=== PATIENT | male | born 1950 | race Caucasian/White ===

== ENCOUNTER 2018-09-03 11:42 | Inpatient (IN) | payer OTHER, MEDICARE ==
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
[2018-09-03] MEDS ORDERED: ceFAZolin 2 GM/DEXTROSE 100 ML IV ONE (13:12)
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
[2018-09-03] MEDS ORDERED: NS 1,000 ML IV ONE (13:15)
[2018-09-03] MEDS ORDERED: HYDROmorphONE/DILAUDID 1 MG/ML INJ IVP ONE (13:15)
[2018-09-03] MEDS ORDERED: ONDANSETRON 4 MG/2 ML VIAL IVP ONE (13:15)
[2018-09-03 13:27] LABS: PLATELET COUNT 268 10^3/uL (150-400)
[2018-09-03 13:50] LABS: INR 1.06 (0.83-1.16); PROTIME(PATIENT) 13.4 SEC (12.0-15.0)
[2018-09-03] MEDS ORDERED: HYDROmorphONE/DILAUDID 1 MG/ML INJ IVP PRN (14:29)
[2018-09-03] MEDS ORDERED: ONDANSETRON 4 MG/2 ML VIAL IVP PRN ×2 (14:29→17:41)
[2018-09-03] MEDS ORDERED: ONDANSETRON DISINTEGRATING 4 MG TAB PO PRN (14:29)
[2018-09-03] MEDS ORDERED: NS 1,000 ML IV SCH (14:30)
[2018-09-03] MEDS ORDERED: ALBUTEROL 60 PUFFS/8 GM MDI IH PRN (14:31)
[2018-09-03] MEDS ORDERED: D50W 25 GM/50 ML SYR IVP PRN (14:32)
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
--- NOTE | 2018-09-03 15:48 | PDANEPAE ---
ANE History of Present Illness 68 yo orif tibia ANE Past Medical History - Cardiovascular History Hx Hypertension: Yes Hx Arrhythmias: No Hx Chest Pain: No Hx Coronary Artery / Peripheral Vascular Disease: No Hx CHF / Valvular Disease: No Hx Palpitations: No - Pulmonary History Hx Asthma/Reactive Airway Disease: Yes Hx Oxygen in Use at Home: No Hx Sleep Apnea: Yes - Endocrine History Hx Diabetes: Yes ANE Review of Systems Review of Systems: - Exercise capacity METS (RN): 2 METS ANE Patient History - Allergies Allergies/Adverse Reactions: Iodine and Iodide Containing Produc Allergy (Verified 09/03/18 11:56) sulfite Allergy (Verified 09/03/18 11:56) - Home Medications Home Medications: Albuterol [Proventil Inhaler HFA (*)] 1 - 2 puffs IH Q4H PRN 09/03/18 [Last Taken Unknown] Aspirin [Aspirin 81mg (*)] 81 mg PO DAILY 09/03/18 [Last Taken 09/03/18] Cholecalciferol Vit D3 [Vitamin D3 (*)] 3,000 units PO DAILY 09/03/18 [Last Taken 09/03/18] Fluticasone Propionate [Flonase Allergy Relief] 2 sprays EACHNARE DAILY PRN 08/23 [Last Taken 09/03/18] Glimepiride 4 mg PO DAILY 09/03/18 [Last Taken 09/03/18] Lisinopril [Zestril 5 mg (*)] 5 mg PO DAILY 09/03/18 [Last Taken 09/03/18] Multivitamins [Multivitamin (*)] 1 each PO DAILY 09/03/18 [Last Taken 09/03/18] Omeprazole 20 mg PO DAILY 09/03/18 [Last Taken 09/03/18] Pioglitazone HCl 45 mg PO DAILY 09/03/18 [Last Taken 09/03/18] Simvastatin 60 mg PO HS 09/03/18 [Last Taken 09/02/18] metFORMIN HCL [Glucophage 1000 mg] 1,000 mg PO BIDMEAL 09/03/18 [Last Taken 08/23 09:00] - NPO status NPO Status: no food or drink >8 hours NPO Since - Liquids (Date): 09/03/18 NPO Since - Liquids (Time): 08:00 NPO Since - Solids (Date): 09/03/18 NPO Since - Solids (Time): 08:00 - Smoking Hx Smoking Status: Never smoked ANE Labs/Vital Signs - Labs Result Diagrams: 09/03/18 13:05 09/03/18 14:50 - Vital Signs Blood Pressure: 151/79 Heart Rate: 66 Respiratory Rate: 16 O2 Sat (%): 95 Height: 5 ft 9 in Weight: 113.398 kg ANE Physical Exam - Airway Mallampati Score: Class 2 Mouth exam: normal dental/mouth exam - Pulmonary Pulmonary: no respiratory distress - Cardiovascular Cardiovascular: regular rate and rhythym - ASA Status ASA Status: III ANE Anesthesia Plan Anesthesia Plan: general endotracheal anesthesia
[2018-09-03] MEDS ORDERED: ROPIVACAINE HCL 20 MG/10 ML INJ EP ONE (16:00)
[2018-09-03] MEDS ORDERED: fentaNYL 100 MCG/2 ML INJ ONE ×2 (16:05→17:55)
[2018-09-03] MEDS ORDERED: REMIFENTANIL HCL 1 MG VIAL ONE (16:05)
[2018-09-03] MEDS ORDERED: PROPOFOL/EMULSION 500 MG/50 ML BOTTLE IV ONE (16:05)
[2018-09-03] MEDS ORDERED: ROCURONIUM 50 MG/5 ML VIAL ONE (16:09)
[2018-09-03] MEDS ORDERED: HYDROGEN PEROXIDE 236 ML BOTTLE TP ONE (17:19)
[2018-09-03] MEDS ORDERED: D5W 1/2 NS W/ 20 KCl/L 1,000 ML IV SCH (17:30)
[2018-09-03] MEDS ORDERED: OXYCODONE/APAP 5/325 TAB PO PRN (17:30)
[2018-09-03] MEDS ORDERED: ALBUTEROL 3 ML DEYVIAL ONE (17:36)
[2018-09-03] MEDS ORDERED: NALOXONE HCL 0.4 MG/ML INJ IVP PRN (17:41)
[2018-09-03] MEDS ORDERED: ALBUTEROL 3 ML DEYVIAL IH PRN (17:41)
[2018-09-03] MEDS ORDERED: fentaNYL 100 MCG/2 ML INJ IVP PRN (17:41)
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
[2018-09-03] MEDS: INSULIN LISPRO 100 UNIT/ML SC SCH (18:46)
--- NOTE | 2018-09-03 18:52 | HOSPPROG ---
Hospitalist Progress Note Assessment/Plan: I was called to evaluate the patient in the post-operative setting by his anesthesiologist. Patient had undergone operative repair of closed right tib- fib fracture. He had episode of bradycardia down into the 30s after receiving anesthesia. Per the anesthesiologist, he was in a Wenkebach rhythm for a short time. He received a dose of atropine with appropriate increase in HR. He was extubated successfully. He continues to have a prolonged AR interval. Upon my evaluation, he is waking up from anesthesia. He denies chest pain. He reports having a "sinus arrythmia." Vitals reviewed. HR 75 and sinus on monitor with 1st degree AV block. BP 103/ 50. Reviewed ECG from earlier in day. Shows sinus rhythm with significant 1st degree AV block (AR interval 339ms) and RBBB. There is no prior for comparison. 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 #Bradycardia: This has resolved, HR now normal. Suspect due to medications and increased vagal tone. Avoid AV melissa blockers. #Conduction disturbances: ECG shows significant 1st degree AV block and RBBB. Will order echocardiogram to evaluate. No prior history of cardiac disease. Objective: Vital Signs Temp Pulse Resp BP Pulse Ox 36.6 C 75 12 103/50 L 92 09/03/18 18:31 09/03/18 18:31 09/03/18 18:31 09/03/18 18:31 09/03/18 18:31 Laboratory Results 09/03/18 13:05 09/03/18 14:50 09/02/18 09/03/18 09/04/18 05:59 05:59 05:59 Intake Total 2000 Output Total 450 Balance 1550 PT 13.4 SEC (12.0-15.0) 09/03/18 13:05 INR 1.06 (0.83-1.16) 09/03/18 13:05 ICD10 Worksheet Patient Problems: Problems Problem Status Onset Fracture of fifth metatarsal bone of left foot Acute Right fibular fracture Acute Right tibial fracture Acute
[2018-09-03] MEDS: ATORVASTATIN CALCIUM 20 MG TAB PO SCH (20:23)
[2018-09-03] MEDS: HYDROCODONE/APAP 5/325 TAB PO PRN (23:47)
[2018-09-04 04:43] LABS: PLATELET COUNT 220 10^3/uL (150-400)
--- NOTE | 2018-09-04 04:46 | GOP ---
[f rep st] OPERATIVE REPORT DATE OF OPERATION: 09/03/2018 SURGEON: Emi Kirk MD PREOPERATIVE DIAGNOSIS: Right distal tibia shaft fracture. POSTOPERATIVE DIAGNOSIS: Right distal tibia shaft fracture. PROCEDURE PERFORMED: IM nail, right tibia. FINDINGS: ESTIMATED BLOOD LOSS: Minimal. Total surgical time was 1 hour. INDICATIONS: A 68-year-old male, who was temporarily wheelchair mobility bound secondary to a nondisplaced calcaneus fracture he sustained a couple months ago. He lives at [facility]. 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 Yesterday, he struck his foot while in his wheelchair on the wall. He presents to the emergency room 24 hours delayed with a distal tibia fracture. He states that both feet ran into a wall. R ankle pain. L foot pain. Reports that both were acute. He also reports that R heel pain from 8 weeks ago. His brother Cruzito is cardiac surgeon and reports decreasing mobility over the past year and thus the reason for an electric wheelchair. Attributes to overall deconditioning, increased weight, old head injury. He was also complaining of pain on the left foot and showed a minimally displaced left base of 5th metatarsal fracture. The patient identified in the preoperative holding area. Consent, laterality, and preoperative antibiotics were confirmed delivered. All questions were answered. DESCRIPTION OF PROCEDURE: Patient brought into the operating room. General anesthesia on the [facility], transferred over to the Hilario table. All extremities well padded. A greater trochanter bump was used. No tourniquet was used. The right lower extremity was prepped and draped in usual sterile fashion. Surgical time-out was performed. We used a medium size triangle. Made a medial parapatellar approach. Guide pin over-drill. 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 We used a ball-tip guidewire and easily passed it across the fracture. It was really kind of a spiral oblique with a butterfly fragment. We successfully reamed from 8 mm end cutter to 11 with some chatter in the isthmus, and placed a 375 x 10 mm nail. We placed 1 distal interlock proximally and 2 distal interlocks distally. Confirmed on fluoroscopic views. The wounds were copiously washed out with 300 cc of warm normal saline. We used 30 cc of 0.2% ropivacaine around the incisions. For the patellar incision , we used 3-0 Vicryl for the capsule, 3-0 Vicryl for the paratenon, 3-0 Monocryl for the skin, and vlad throughout. A soft dressing was applied with Xeroform, 4x4s, ABD, Webril, and an Sahil. IMPLANTS: Synthes expert nail with very distal interlocking screws, 375 mm x 10 mm with 1 proximal interlocking and 2 distal interlocking. COMPLICATIONS: None. DISPOSITION: Extubated, awake to the PACU in stable condition. /[id number]/MODL MTDD
--- NOTE | 2018-09-04 08:36 | SOAPPROG ---
SOCYNTHIA Progress Note Assessment/Plan: Assessment: pod 2. stable Plan: 09/04/18 08:34 PT/OT Fracture walker for L foot metatarsal fx. Nonsurgical mgmt. 100% WB OK R tibial nail. 50% weightbearing to assist with transfers. He will likely need a 1-2 person assist. He will most likely be wheelchair bound and transfers until he gets his strength up. Subjective: POD 1. feeling well. no significant events overnoc. Objective: Vital Signs Temp Pulse Resp BP Pulse Ox 36.6 C 56 L 14 123/57 H 99 09/04/18 08:00 09/04/18 08:00 09/04/18 08:00 09/04/18 08:00 09/04/18 08:00 Laboratory Results 09/04/18 04:19 09/04/18 04:19 09/03/18 09/04/18 09/05/18 05:59 05:59 05:59 Intake Total 2940 Output Total 700 1150 Balance 2240 -1150 PT 13.4 SEC (12.0-15.0) 09/03/18 13:05 INR 1.06 (0.83-1.16) 09/03/18 13:05 swollen Left foot mobile toes dressings cdi ICD10 Worksheet Patient Problems: Problems Problem Status Onset Fracture of fifth metatarsal bone of left foot Acute Right fibular fracture Acute Right tibial fracture Acute
--- NOTE | 2018-09-04 08:42 | POSTANESTH ---
Post Anesthetic Evaluation Cardiovascular Status: Normal, Stable Respiratory Status: Normal, Stable Level of Consciousness/Mental Status: Can Participate in Eval Pain Control: Adequate, Prn Tx Ordered Nausea/Vomiting Control: Adequate, Prn Tx Ordered Complications Possibly Related to Anesthesia: None Noted
[2018-09-04] MEDS ORDERED: FLUTICASONE NASAL 120 SPRAYS/16 GM MDI EACHNARE PRN (09:00)
[2018-09-04] MEDS ORDERED: PERFLUTREN LIPID MICROSPHERES 1.1 MG/ML VIAL IV ONE (09:15)
[2018-09-04] MEDS: HYDROCODONE/APAP 5/325 TAB PO PRN ×3 (09:22→23:19)
[2018-09-04] MEDS: INSULIN LISPRO 100 UNIT/ML SC SCH ×3 (09:33→18:14)
[2018-09-04] MEDS: ENOXAPARIN 40 MG/0.4 ML SYR SC SCH (09:33)
[2018-09-04] MEDS: LISINOPRIL 5 MG TAB PO SCH (09:34)
[2018-09-04] MEDS: PANTOPRAZOLE SODIUM 40 MG TAB PO SCH (09:34)
[2018-09-04] MEDS: CHOLECALCIFEROL VIT D3 2,000 UNITS TAB/CAP PO SCH (09:34)
--- NOTE | 2018-09-04 11:57 | ECHO ---
[email or web address] [address] [address] Main: [phone] Fax: Transthoracic Echocardiogram Name: SHYAM SCHULTZ MR#: [id number] Study Date: 09/04/2018 Study Time: 08:30 AM Date of : 1950 Age: 68 year(s) Height: 175.3 cm (69 in.) Weight: 112.95 kg (249 lb.) BSA: 2.27 m2 Gender: Male Examination: Echo with Definity Indication: bradycardia Image Quality: Technically Difficult Contrast: 0.330 mg I.V. dose of Definity was administered to improve endocardial border definition. Requested by: Aime Alvarez BP: 123 mmHg/57 mmHg Heart Rate: Rhythm: Indication: bradycardia Procedure Staff Salesperson Jewelry: Karina No [facility] Reading Physician: Sharlene Gibbs MD Requesting Provider: Conclusions: Normal size left ventricle. Mild to moderate LVH. The septum is more hypertrophied than the posterior wall. Paradoxical septal motion consistent with conduction delay.. Moderately dilated right ventricle. Mildly reduced RV function. Trivial to mild tricuspid valve regurgitation. Pulmonary artery pressure is not obtained due to inadequate TR jet. No pericardial effusion. No prior echo Measurements: Chambers Valvular Assessment AV/MV Valvular Assessment TV/PV Normal Normal Normal Name Value Range Name Value Range Name Value Range Ao Polly (MM): 3.7 cm (2.2 cm-3.7 AV Vmax: 1.47 m/s (1 m/s-1.7 TR Vmax: 3.17 mm/s ( - ) cm) m/s) TR PGmax: 40 mmHg ( - ) IVSd (2D): 1.4 cm (0.6 cm-1.1 AV maxP mmHg ( - ) PV Vmax: 1.14 m/s (0.6 m/s-0.9 cm) LVOT Vmax: 0.68 m/s (0.7 m/s-1.1 m/s) LVDd (2D): 4.6 cm (4.2 cm-5.9 m/s) PV PGmax: 5 mmHg ( - ) cm) ABHIJIT (Vmax): 1.9 cm2 ( - ) LVDs (2D): 2.9 cm (2.1 cm-4 MV E Vmax: 0.58 m/s ( - ) cm) MV A Vmax: 0.39 m/s ( - ) LVPWd (2D): 1.1 cm (0.6 cm-1 MV E/A: 1.49 ( - ) cm) LVOTd 2.3 cm 2.3 cm mm LVEF (2D): 69 (>=54 %) RVDd(2D): 5.1 cm (1.9 cm-3.8 cmmm) Patient: SHYAM SCHULTZ Study Date: 09/04/2018 Page 1 of 2 08:30 AM Continued Measurements: Chambers Valvular Assessment AV/MV Name Value Name Value LADs: 4.1 cm MV DecTime: 215 m/s LADs Lon.5 cm LA Area: 28.1 cm2 Additional Vessels Name Value Ao Ascendin.3 cm Findings: Left Ventricle: Normal size left ventricle. Mild to moderate LVH. Normal global systolic LV function. EF is 69 %. Unable to assess diastolic dysfunction. The septum is more hypertrophied than the posterior wall. Paradoxical septal motion consistent with conduction delay.. Right Ventricle: Moderately dilated right ventricle. Reduced RV function. Mildly reduced RV function. Left Atrium: The left atrium is normal in size. Right Atrium: The right atrium is not well visualized. Mitral Valve: The mitral valve is normal in appearance. There is no significant mitral valve regurgitation. No mitral stenosis is present. Aortic Valve: The aortic valve is tri-leaflet. There is no aortic valve regurgitation. No aortic valve stenosis is present. Tricuspid Valve: Tricuspid valve not well visualized. Trivial to mild tricuspid valve regurgitation. Pulmonary artery pressure is not obtained due to inadequate TR jet. Pulmonic Valve: Pulmonary valve not well visualized. Mild to moderate pulmonic valve regurgitation. Aorta: Normal size aortic root measuring 3.7 cm. Normal size ascending aorta measuring 3.3 cm. IVC: The IVC is not well visualized. Pericardium: No pericardial effusion. (No Signature Object) Patient: SHYAM SCHULTZ Study Date: 09/04/2018 Page 2 of 2 08:30 AM [id number]
--- NOTE | 2018-09-04 12:20 | ASMTCMCOM ---
CM Note CM Note Notes: Patient admitted w tib-fib fracture. He is s/p R tibial nail. He lives at [facility]. His brother Cruzito has just increased his level of assistance to the max (he was not getting much before). [facility] (patient has used them in the past). Hopefully, he will return home soon. Current CM discharge plan: [facility] w [facility] home care Date Signed: 09/04/2018 12:19 PM Electronically Signed By:Wendy Reza RN
[2018-09-04] MEDS ORDERED: FUROSEMIDE 40 MG/4 ML VIAL IVP ONE (12:41)
--- NOTE | 2018-09-04 12:46 | HOSPPROG ---
Hospitalist Progress Note Assessment/Plan: #Fracture of fifth metatarsal bone of left foot (Acute) -none surgical management #Right tib/fibular fracture (Acute) -s/p surgical mgmt on 09/03 #Acute on chronic Bradycardia. Received Atropine in Surgery -etiology: acute on chronic possible exacerbated by Anesthesia -EKG reviewed, shows one dropped beat. -plan to monitor overnight as some improvement thus far. If persists, would consult Cardiology in a.m. to determine need for pacemaker #NIDDM #HTN #Pedal edema: Lasix #Hyperkalemia: Lasix #Currently wheel chair bound. Will likely remains wheel chair bound for the near future. Needs Rehab DVT proph: Lovenox Subjective: no cp or sob. no n/v. Bradycardia is present but improving. not symptomatic. pain is well controlled Objective: Vital Signs Temp Pulse Resp BP Pulse Ox 36.7 C 57 L 15 110/53 L 96 09/04/18 11:40 09/04/18 11:57 09/04/18 11:57 09/04/18 11:40 09/04/18 11:57 Laboratory Results 09/04/18 04:19 09/04/18 04:19 09/03/18 09/04/18 09/05/18 05:59 05:59 05:59 Intake Total 2940 Output Total 700 1150 Balance 2240 -1150 PT 13.4 SEC (12.0-15.0) 09/03/18 13:05 INR 1.06 (0.83-1.16) 09/03/18 13:05 - Physical Exam Constitutional: no apparent distress Eyes: PERRL, EOMI Ears, Nose, Mouth, Throat: moist mucous membranes, hearing normal Cardiovascular: regular rate and rhythym, edema Respiratory: no respiratory distress, no rales or rhonchi, clear to auscultation Gastrointestinal: normoactive bowel sounds Skin: warm Neurologic: AAOx3 Psychiatric: interacting appropriately, not anxious, not encephalopathic Lymph, Heme, Immunologic: No petechiae ICD10 Worksheet Patient Problems: Problems Problem Status Onset Fracture of fifth metatarsal bone of left foot Acute Right fibular fracture Acute Right tibial fracture Acute
--- NOTE | 2018-09-04 16:59 | PDMN ---
Medical Necessity Medical necessity: [facility] S1124 Tibia/Fibula Shaft Fracture, Closed or Open Reduction, A-2 days: 68 yo w/c bound patient w/ injury to RLE, imaging shows acute R tib/fib fx. Ortho consulted, taken to OR for IM nail R tibia. Initially OBS but pt developed post op complications w/ bradycardia HR 30s, in Wenkeback rhythm for short time, received atropine. Pt cont to have prolonged NM interval w/ 1st degree AV block and RBBB w/ no prior hx cardiac disease. Pt requires additional MN for cont tele monitoring, cardiac eval. Change to IP status 09/04/18@1338 per MD order.
[2018-09-04] MEDS: ATORVASTATIN CALCIUM 20 MG TAB PO SCH (20:40)
[2018-09-05 04:54] LABS: PLATELET COUNT 220 10^3/uL (150-400)
[2018-09-05] MEDS: oxyCODONE IR 5 MG TAB PO PRN (07:31)
[2018-09-05] MEDS: INSULIN LISPRO 100 UNIT/ML SC SCH ×3 (07:52→19:42)
[2018-09-05] MEDS: PANTOPRAZOLE SODIUM 40 MG TAB PO SCH (09:32)
[2018-09-05] MEDS: LISINOPRIL 5 MG TAB PO SCH (09:32)
[2018-09-05] MEDS: CHOLECALCIFEROL VIT D3 2,000 UNITS TAB/CAP PO SCH (09:33)
[2018-09-05] MEDS: ENOXAPARIN 40 MG/0.4 ML SYR SC SCH (09:35)
--- NOTE | 2018-09-05 09:55 | SOAPPROG ---
SOAP Progress Note Assessment/Plan: a/p 68 yo male, pod#3 s/p right tibial nail for tibia shaft fracture and fracture boot/non-operative treatment for left 5th metatarsal base fracture, doing well w/o issues -on hospitalist service, care per primary -proph: per primary, scd's/teds/ankle & foot rom as tolerated/Incentive Spirometry -RLE: 50% weight bearing to assist w/ transfers -LLE: wbat (upto 100%) in fracture boot -pt/ot -ortho will continue to follow Subjective: pod#3 mr almanzar reports his pain is well controlled, denies any problems overnight, denies fevers/chills, denies cp/sob/difficulty breathing besides his baseline asthma status denies numbness/tingling, endorses occasional spasm/parasthesia/tingling right leg, but improving voiding freely since catheter removed yesterday passing gas, but NO bm since before surgery Objective: LLE: fiberglass/millicent wrap in place c/d/i, removed by ortho - no erythema/ ecchymosis, mild edema through forefoot, ttp over 5thMT, NTTP lisfranc/med & lat mal/digits 1-5, grossly nvid w/ brisk cap refill pt/dp2+ RLE: dressings c/d/i, edema through ankle/forefoot, grossly nvid w/ brisk cap refill, dp/pt 2+ Vital Signs Temp Pulse Resp BP Pulse Ox 37.1 C 68 23 H 134/68 H 95 09/05/18 08:00 09/05/18 08:00 09/05/18 08:00 09/05/18 08:00 09/05/18 08:00 Laboratory Results 09/05/18 04:14 09/05/18 04:14 09/04/18 09/05/18 09/06/18 05:59 05:59 05:59 Intake Total 1325 Output Total 500 300 Balance 825 -300 PT 13.4 SEC (12.0-15.0) 09/03/18 13:05 INR 1.06 (0.83-1.16) 09/03/18 13:05 ICD10 Worksheet Patient Problems: Problems Problem Status Onset Fracture of fifth metatarsal bone of left foot Acute Right fibular fracture Acute Right tibial fracture Acute
--- NOTE | 2018-09-05 10:26 | HOSPPROG ---
Hospitalist Progress Note Assessment/Plan: #Acute left fifth metatarsal fracture -none surgical management #Right tib/fibular fracture (Acute) -s/p surgical mgmt on 09/03 #Bradycardia: 30s after surgery, dosed atropine -sinus pause on tele; reviewed EKG, echo with Dr. Javier. Prolonged RI interval, no e/o HOCM, LVOT on echo -asymptomatic; no indication for pacemaker now -not on AV-melissa blocking agents #NIDDM: resume PO meds, SSI #HTN: controlled, not on BP meds #Pedal edema: Lasix #Hyperkalemia: resolved #Currently wheel chair bound. Will likely remains wheel chair bound for the near future. Needs Rehab DVT proph: Lovenox Disp: inpt admission for PT/OT Subjective: nonproduuctive cough Objective: Vital Signs Temp Pulse Resp BP Pulse Ox 37.1 C 68 23 H 134/68 H 95 09/05/18 08:00 09/05/18 08:00 09/05/18 08:00 09/05/18 08:00 09/05/18 08:00 Laboratory Results 09/05/18 04:14 09/05/18 04:14 09/04/18 09/05/18 09/06/18 05:59 05:59 05:59 Intake Total 1325 Output Total 500 300 Balance 825 -300 PT 13.4 SEC (12.0-15.0) 09/03/18 13:05 INR 1.06 (0.83-1.16) 09/03/18 13:05 - Time Spent With Patient Time Spent with Patient: greater than 35 minutes Time Spent with Patient: Greater than 35 minutes spent on this patients care, greater than 50% of time spent counseling, educating, and coordinating care regarding the above mentioned plan. - Physical Exam Constitutional: obese Eyes: PERRL Ears, Nose, Mouth, Throat: moist mucous membranes Cardiovascular: regular rate and rhythym Respiratory: expiratory wheeze, rhonchi Gastrointestinal: normoactive bowel sounds Genitourinary: No tanner in urethra Musculoskeletal: other (left foot wrapped. right leg CDI. Middle swelling of right knee) Neurologic: AAOx3 Psychiatric: interacting appropriately ICD10 Worksheet Patient Problems: Problems Problem Status Onset Right tibial fracture Acute Right fibular fracture Acute Fracture of fifth metatarsal bone of left foot Acute
[2018-09-05] MEDS: metFORMIN HCL 500 MG TAB PO SCH ×2 (10:53→17:45)
[2018-09-05] MEDS: PIOGLITAZONE HCL 15 MG TAB PO SCH (10:55)
[2018-09-05] MEDS: GLIMEPIRIDE 2 MG TAB PO SCH (11:16)
[2018-09-05] MEDS ORDERED: POLYETHYLENE GLYCOL 3350 17 GM PKT PO PRN (15:25)
[2018-09-05] MEDS ORDERED: BISACODYL 10 MG SUPP PR PRN (15:25)
[2018-09-05] MEDS ORDERED: MAGNESIUM HYDROXIDE 30 ML UDCUP PO PRN (15:25)
[2018-09-05] MEDS ORDERED: LACTULOSE 20 GM/30 ML UDCUP PO PRN (15:25)
--- NOTE | 2018-09-05 15:53 | ASMTCMCOM ---
CM Note CM Note Notes: Spoke with pt and with pt's brother Cruzito. Both are agreeable to discharge plans to [facility] Inpatient Rehab as recommended by PT and OT. Discharge date TBD. Pt still having difficulty with weight bearing. Message left for [facility] Inpatient Rehab admission to determine when bed will be available. CM to follow. D/C Plan: Inpatient Rehab pending availability Date Signed: 09/05/2018 03:52 PM Electronically Signed By:Jennifer Turner
[2018-09-05] MEDS: ACETAMINOPHEN 325 MG TAB PO PRN (17:44)
[2018-09-05] MEDS: ATORVASTATIN CALCIUM 20 MG TAB PO SCH (19:54)
[2018-09-05] MEDS: SENNOSIDES/DOCUSATE SODIUM TAB PO SCH (19:54)
[2018-09-06] MEDS: ACETAMINOPHEN 325 MG TAB PO PRN (01:05)
[2018-09-06] MEDS: INSULIN LISPRO 100 UNIT/ML SC SCH ×3 (07:39→21:37)
[2018-09-06] MEDS: CHOLECALCIFEROL VIT D3 2,000 UNITS TAB/CAP PO SCH (07:41)
[2018-09-06] MEDS: SENNOSIDES/DOCUSATE SODIUM TAB PO SCH ×2 (07:42→21:38)
[2018-09-06] MEDS: metFORMIN HCL 500 MG TAB PO SCH ×2 (07:43→21:48)
[2018-09-06] MEDS: PIOGLITAZONE HCL 15 MG TAB PO SCH (07:43)
[2018-09-06] MEDS: GLIMEPIRIDE 2 MG TAB PO SCH (07:43)
[2018-09-06] MEDS: PANTOPRAZOLE SODIUM 40 MG TAB PO SCH (07:43)
[2018-09-06] MEDS: oxyCODONE IR 5 MG TAB PO PRN ×2 (07:44→13:26)
[2018-09-06] MEDS: ENOXAPARIN 40 MG/0.4 ML SYR SC SCH (07:45)
--- NOTE | 2018-09-06 11:47 | ASMTCMCOM ---
CM Note CM Note Notes: Spoke with pt and with hospitalist and RN. Pt could likely discharge tomorrow. [facility] inpatient rehab to evaluate pt today. Referrals sent to [facility] and [facility] in case pt does not qualify for IpRehab. Message left for [facility] with update. D/C Plan: [facility] inpatient Rehab v SNF Date Signed: 09/06/2018 11:47 AM Electronically Signed By:Jennifer Turner
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
--- NOTE | 2018-09-06 13:16 | SOAPPROG ---
SOAP Progress Note Assessment/Plan: a/p 68 yo male, pod#4 s/p right tibial nail for tibia shaft fracture and fracture boot/non-operative treatment for left 5th metatarsal base fracture, continues to report no orthopedic related issues/complaints, improving as to be expected -on hospitalist service, care per primary -proph: per primary, scd's/teds/ankle & foot rom as tolerated/Incentive Spirometry -RLE: 50% weight bearing to assist w/ transfers -LLE: wbat (upto 100%) in fracture boot -pt/ot -ortho will continue to follow 09/06/18 13:14 Subjective: frankie reports no problems overnight other than difficulty getting hold of nursing staff for assistance getting from chair back into bed, pain is well controlled as long as he doesn't move too much, denies cp/sob/difficulty breathing, reports no falls/accidents/traumas reports feeling a little warm/feverish, but no temps above 99.6. voiding freely since catheter pulled wednesday, passing gas & BM's w/o issues Objective: LLE: in fracture boot, no erythema/ecchymosis, ttp 5th mtp base, nttp elsewhere , full digital rom w/o pain, grossly nvid w/ pt/dp2+ symmetric RLE: dressings c/d/i, no signs of drainage or infection, soft and compressible calf, knee rom and ankle rom wnl, digital rom wnl for hx of fusion, grossly nvid , pt/dp 2+ Vital Signs Temp Pulse Resp BP Pulse Ox 37.6 C 54 L 22 H 141/70 H 96 09/06/18 11:20 09/06/18 11:20 09/06/18 11:20 09/06/18 11:20 09/06/18 11:20 Laboratory Results 09/05/18 04:14 09/06/18 04:25 09/05/18 09/06/18 09/07/18 05:59 05:59 05:59 Intake Total 1325 1850 Output Total 500 1175 250 Balance 825 675 -250 PT 13.4 SEC (12.0-15.0) 09/03/18 13:05 INR 1.06 (0.83-1.16) 09/03/18 13:05 ICD10 Worksheet Patient Problems: Problems Problem Status Onset Fracture of fifth metatarsal bone of left foot Acute Right fibular fracture Acute Right tibial fracture Acute
[2018-09-06] MEDS: ATORVASTATIN CALCIUM 20 MG TAB PO SCH (21:37)
[2018-09-07] MEDS: INSULIN LISPRO 100 UNIT/ML SC SCH ×2 (08:00→12:12)
[2018-09-07] MEDS: ENOXAPARIN 40 MG/0.4 ML SYR SC SCH (08:49)
[2018-09-07] MEDS: CHOLECALCIFEROL VIT D3 2,000 UNITS TAB/CAP PO SCH (08:50)
[2018-09-07] MEDS: metFORMIN HCL 500 MG TAB PO SCH (08:50)
[2018-09-07] MEDS: PANTOPRAZOLE SODIUM 40 MG TAB PO SCH (08:51)
[2018-09-07] MEDS: GLIMEPIRIDE 2 MG TAB PO SCH (08:51)
[2018-09-07] MEDS: SENNOSIDES/DOCUSATE SODIUM TAB PO SCH (08:51)
[2018-09-07] MEDS: PIOGLITAZONE HCL 15 MG TAB PO SCH (08:51)
--- NOTE | 2018-09-07 11:08 | ASMTDCNOTE ---
Case Management Discharge Discharge Order Complete? Answers: Yes Patient to Obtain Answers: Other Notes: BLS- [facility] Medications Transportation Arranged Answers: [facility] Stretcher Case Management Transport Answers: Yes Form Complete Faxed Final Orders Answers: Yes Agency/Facility Transfer Answers: Yes Report Printed & Faxed to Receiving Agency Family Notified Answers: Yes Notes: Notified Brother Tyler Discharge Comments Notes: CM spoke with pt and left message with pt's brother Tyler who was in surgery at the time. Pt was accepted at Inpatient Rehab. Gena reports she spoke with pt's brother Tyler who would like pt to go there. CM scheduled transportation for 1PM through [facility]. Completed PCS and notified RN. No other CM needs identified at this time . Date Signed: 09/07/2018 11:07 AM Electronically Signed By:SHERICE Son
--- NOTE | 2018-09-07 11:14 | ASDISCHSUM ---
Discharge Information Plan Status:Inpatient Rehab Medically Cleared to Leave: Discharge Date: D/C Disposition:[facility] D/C Disposition: Projected Discharge Date:09/06/2018 11:00 AM Transportation at D/C:ALS/BLS Discharge Delay Reason: Follow-Up Date:09/06/2018 11:00 AM Discharge Slot: Final Diagnosis: Placement Information Referral Type:*Home Health Care Services Referral ID:[id number] Provider Name: Address 1: Phone Number: Address 2: Fax Number: City: Selection Factors: State: Referral Type:Assisted Living Residence Referral ID:[id number] Provider Name: Address 1: Phone Number: Address 2: Fax Number: City: Selection Factors: State: Referral Type:Rehabilitation Hospital Referral ID:[id number] Provider Name:[facility] Inpatient Rehab Address 1:[address] Phone Number: Address 2: Fax Number: [facility]:[place] Selection Factors: State:[place] Referral Type:*Intermediate/SNF Referral ID:[id number] Provider Name: Address 1: Phone Number: Address 2: Fax Number: [facility]: Selection Factors: State: Patient Contact Information Contact Name:FARNCISCA Relationship: Address:[address] City:[place] Alternate Phone: [facility]/Zip Code:[place] [address] Email: Financial Information Financial Class:Medicare Primary Plan Desc:MEDICARE INPATIENT Primary Plan Number:[id number] Secondary Plan Desc:RAMIREZ/CRISTAL SUPPLEMENT Secondary Plan Number:[id number] Assessment Information LACE LACE Length of stay for Answers: 2 days current admission Comorbidities - select Answers: Diabetes (uncontrolled or all that apply controlled) # of Emergency department Answers: 1-2 visits in the last 6 months Score: 4 Date Signed: 09/07/2018 11:12 AM Electronically Signed By:SHERICE Son [facility] CM Progress Note CM Note CM Note Notes: Patient admitted w tib-fib fracture. He is s/p R tibial nail. He lives at [facility]. His brother Cruzito has just increased his level of assistance to the max (he was not getting much before). We will [facility] (patient has used them in the past). Hopefully, he will return home soon. Current CM discharge plan: [facility] Date Signed: 09/04/2018 12:19 PM Electronically Signed By:Wendy Reza RN [facility] CM Progress Note CM Note CM Note Notes: Spoke with pt and with pt's brother Cruzito. Both are agreeable to discharge plans to [facility] Inpatient Rehab as recommended by PT and OT. Discharge date TBD. Pt still having difficulty with weight bearing. Message left for [facility] Inpatient Rehab admission to determine when bed will be available. CM to follow. D/C Plan: Inpatient Rehab pending availability Date Signed: 09/05/2018 03:52 PM Electronically Signed By:Jennifer Turner [facility] CM Progress Note CM Note CM Note Notes: Spoke with pt and with hospitalist and RN. Pt could likely discharge tomorrow. [facility] inpatient rehab to evaluate pt today. [facility] in case pt does not qualify for IpRehab. Message left for brother Cruzito with update. D/C Plan: [facility] inpatient Rehab v SNF Date Signed: 09/06/2018 11:47 AM Electronically Signed By:Jennifer Turner Case Management Discharge Plan Note Case Management Discharge Discharge Order Complete? Answers: Yes Patient to Obtain Answers: Other Notes: [facility] Medications Transportation Arranged Answers: [facility] Stretch Case Management Transport Answers: Yes Form Complete Faxed Final Orders Answers: Yes Agency/Facility Transfer Answers: Yes Report Printed & Faxed to Receiving Agency Family Notified Answers: Yes Notes: Notified Brother Tyler Discharge Comments Notes: CM spoke with pt and left message with pt's brother Tyler who was in surgery at the time. Pt was accepted at Inpatient Rehab. Gena reports she spoke with pt's brother Tyler who would like pt to go there. CM scheduled transportation for 1PM through [facility]. Completed PCS and notified RN. No other CM needs identified at this time . Date Signed: 09/07/2018 11:07 AM Electronically Signed By:SHERICE Son Intervention Information
[2018-09-07 11:25] VITALS: BP 169/68
--- NOTE | 2018-09-07 11:54 | CPEKG ---
Test Reason : OPEN Blood Pressure : / mmHG Vent. Rate : 054 BPM Atrial Rate : 055 BPM P-R Int : 375 ms QRS Dur : 114 ms QT Int : 470 ms P-R-T Axes : 028 -04 -06 degrees QTc Int : 446 ms Sinus bradycardia Sinus pause Prolonged NV interval Incomplete right bundle branch block Confirmed by Henrique Coronel ([id number]) on 09/07/2018 11:54:01 AM Referred By: Josafat Lino Confirmed By:Henrique Coronel
--- NOTE | 2018-09-07 11:58 | CPEKG ---
Test Reason : OPEN Blood Pressure : / mmHG Vent. Rate : 073 BPM Atrial Rate : 074 BPM P-R Int : 318 ms QRS Dur : 111 ms QT Int : 397 ms P-R-T Axes : 000 001 048 degrees QTc Int : 438 ms Sinus rhythm Prolonged CA interval Low voltage, precordial leads Incomplete right bundle branch block Confirmed by Henrique Coronel ([id number]) on 09/07/2018 11:58:10 AM Referred By: Josafat Lino Confirmed By:Henrique Coronel
--- NOTE | 2018-09-07 12:20 | PDIAF ---
- Diagnosis Diagnosis: Tib/fib fracture Code Status: Full Code - Medication Management Discharge Medications: electronically signed and located in the Home Medication List. - Orders Diet Recommendation: ADA 2000 consistent carb Diet Texture: Regular Texture Diet Additional Instructions: ORTHO: Right Lower extremity 50% WB. Left lower extremity 100% weightbearing - Follow Up Care Current Providers and Referrals: Patient,NotPresent [Unknown] - As per Instructions Emi Kirk MD [Medical Doctor] - follow up in 1 week
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
== END 2018-09-07 13:10 | DRG 494 ==
LOC: EDUNIT# → F3N 18:27 → OBSVTOIN 09-04 13:38
PROVIDERS: ADMIT Family Medicine; ATTEND Internal Medicine
PROC: 2W3LX1Z Immobilization of Right Lower Extremity using Splint (ICD-10-PCS; 2018-09-03)
PROC: 2W3MX1Z Immobilization of Left Lower Extremity using Splint (ICD-10-PCS; 2018-09-03)
PROC: 0QSG06Z Reposition Right Tibia with Intramedullary Internal Fixation Device, Open Approach (ICD-10-PCS; principal; 2018-09-03 16:00)
DX: S89.101A Unspecified physeal fracture of lower end of right tibia, initial encounter for closed fracture (principal); S89.301A Unspecified physeal fracture of lower end of right fibula, initial encounter for closed fracture; S92.352A Displaced fracture of fifth metatarsal bone, left foot, initial encounter for closed fracture; M62.461 Contracture of muscle, right lower leg; S89.91XS Unspecified injury of right lower leg, sequela; V09.1XXA Pedestrian injured in unspecified nontraffic accident, initial encounter; Y92.129 Unspecified place in nursing home as the place of occurrence of the external cause; M81.0 Age-related osteoporosis without current pathological fracture; E11.9 Type 2 diabetes mellitus without complications; I10 Essential (primary) hypertension; I44.0 Atrioventricular block, first degree; I45.10 Unspecified right bundle-branch block; R00.1 Bradycardia, unspecified; E87.5 Hyperkalemia; Z99.3 Dependence on wheelchair; Z79.84 Long term (current) use of oral hypoglycemic drugs; Z87.820 Personal history of traumatic brain injury
CPT/HCPCS: 96374; 97162-GP; 97165-GO; 97530-GO; 97530-GP; 97535-GO; C1713; G0378; J0690; J1170; J1650; J1815; J1940; J2405; J2704; J2795; J3010; J7613; Q9957

== ENCOUNTER 2018-09-07 13:31 | Inpatient (IN) | payer OTHER, MEDICARE ==
[2018-09-07] MEDS ORDERED: NON-FORMULARY NEW DRUG (Fluticasone Propionate [Flonase Allergy Relief] 2 SPRAYS) EACHNARE PRN (15:11)
[2018-09-07] MEDS ORDERED: ONDANSETRON DISINTEGRATING 4 MG TAB PO PRN (15:11)
[2018-09-07] MEDS ORDERED: ALBUTEROL 60 PUFFS/8 GM MDI IH PRN (15:11)
[2018-09-07] MEDS ORDERED: POLYETHYLENE GLYCOL 3350 17 GM PKT PO PRN (15:11)
[2018-09-07] MEDS ORDERED: D50W 25 GM/50 ML SYR IVP PRN (15:13)
[2018-09-07] MEDS ORDERED: FLUTICASONE NASAL 120 SPRAYS/16 GM MDI EACHNARE PRN (15:34)
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
[2018-09-07] MEDS ORDERED: NON-FORMULARY NEW DRUG (Metformin Hcl [Glucophage 1000 Mg] 1,000 MG) PO SCH (18:00)
[2018-09-07] MEDS: metFORMIN HCL 500 MG TAB PO SCH (18:13)
[2018-09-07] MEDS: INSULIN LISPRO 100 UNIT/ML SC SCH (18:18)
[2018-09-07] MEDS: SENNOSIDES/DOCUSATE SODIUM TAB PO SCH (20:08)
[2018-09-07] MEDS ORDERED: SIMVASTATIN 60 MG PO SCH (21:00)
[2018-09-07] MEDS: ATORVASTATIN CALCIUM 40 MG TAB PO SCH (22:14)
[2018-09-07] MEDS: ACETAMINOPHEN 500 MG TAB PO SCH (22:15)
[2018-09-08] MEDS: ACETAMINOPHEN 500 MG TAB PO SCH ×3 (06:02→21:10)
[2018-09-08] MEDS: INSULIN LISPRO 100 UNIT/ML SC SCH ×3 (07:43→18:29)
[2018-09-08] MEDS: ENOXAPARIN 40 MG/0.4 ML SYR SC SCH (07:44)
[2018-09-08] MEDS: HYDROmorphONE/DILAUDID 2 MG TAB PO PRN (07:49)
[2018-09-08] MEDS: CHOLECALCIFEROL VIT D3 1,000 UNITS TAB PO SCH (08:49)
[2018-09-08] MEDS: metFORMIN HCL 500 MG TAB PO SCH ×2 (08:49→18:33)
[2018-09-08] MEDS: LISINOPRIL 5 MG TAB PO SCH (08:50)
[2018-09-08] MEDS: MULTIVITAMINS 1 EACH TAB PO SCH (08:51)
[2018-09-08] MEDS: PANTOPRAZOLE SODIUM 40 MG TAB PO SCH (08:51)
[2018-09-08] MEDS: PIOGLITAZONE HCL 15 MG TAB PO SCH (08:53)
[2018-09-08 08:54] LABS: PLATELET COUNT 264 10^3/uL (150-400)
[2018-09-08] MEDS: SENNOSIDES/DOCUSATE SODIUM TAB PO SCH ×2 (08:54→21:10)
[2018-09-08] MEDS: GLIMEPIRIDE 2 MG TAB PO SCH (08:57)
[2018-09-08] MEDS ORDERED: PIOGLITAZONE HCL 45 MG PO SCH (09:00)
[2018-09-08] MEDS ORDERED: ASPIRIN 81 MG CHEWABLE TAB PO SCH (09:00)
[2018-09-08] MEDS ORDERED: NON-FORMULARY NEW DRUG (Omeprazole [Omeprazole] 20 MG) PO SCH (09:00)
[2018-09-08] MEDS ORDERED: GLIMEPIRIDE 4 MG PO SCH (09:00)
--- NOTE | 2018-09-08 12:39 | SOAPPROG ---
SOAP Progress Note Assessment/Plan: Assessment: Debility with partial weightbearing on the left lower extremity complicated by obesity. PT and OT to optimize mobility and activities of daily living to the modified independent level for return to his independent. Hypoxia. V/Q scan 09/08/2018 low probability for pulmonary embolus. Anemia may contribute. Ordered BNP to evaluate for CHF. Consider diuretic. Encourage incentive spirometry. Urinary frequency. Bladder scan approximately 200 cc after voiding approximately 200 cc, 09/08/2018. Initiated tamsulosin, 09/08/2018. Continue to monitor. Diabetes mellitus, type 2. Continue current medications with glimepiride, metformin and pioglitazone. Continue insulin sliding scale with which he was treated in the hospital. Right heel pain. Obtained x-ray of right calcaneus, 09/08/2018. Nondisplaced fracture was seen. Discussed with orthopedic surgeon Dr. Lema, 09/08/2018. No change in weight-bearing status. Pain management. He reports that hydromorphone has been the most effective medication. Will separate the opiate from the acetaminophen. Schedule acetaminophen 1000 mg q.8 hours and I have ordered hydromorphone 2 to 4 mg q.4 hours p.r.n. He should be offered hydromorphone prior to therapy sessions so that he can have adequate pain control to participate in therapy. Osteoporosis. It might be in his best interest to discontinue pioglitazone and to initiate an alternate hyperglycemic such as a GLP-1 agonist. Continue cholecalciferol. He should consider initiating bisphosphonate therapy after his discharge. He should consider consultation with Endocrinology. Hypertension. Continue lisinopril and monitor blood pressures. Opiate-induced constipation. Continue bowel program with polyethylene glycol on a p.r.n. basis and scheduled senna/docusate. I will also order a bisacodyl suppository on an as-needed basis. Followup: His primary care provider is Dr. Rajan Lopez, and he can see her in followup after his discharge. He is to follow up with orthopedic surgeon, Dr. Emi Kirk, in 1 week for postoperative visit. Instructions regarding wound care are to leave dressings in place until followup with orthopedics. 09/08/18 13:49 09/09/18 12:48 Subjective: Reports frequent urination, every 2 hr overnight. Interfered with sleep. Complains of slow response to the call light. Has pain in the right lower leg and the left heel when he stands. Objective: Vital Signs Temp Pulse Resp BP Pulse Ox 37.4 C 64 19 121/80 H 93 09/08/18 11:16 09/08/18 11:16 09/08/18 11:16 09/08/18 11:16 09/08/18 11:16 Laboratory Results 09/08/18 06:00 09/08/18 06:00 09/07/18 09/08/18 09/09/18 05:59 05:59 05:59 Intake Total 240 600 Output Total 300 300 Balance -60 300 Physical Exam - Physical Exam General Appearance: WD/WN, alert, no apparent distress, obese Respiratory: normal breath sounds, other (Reduced air movement), No crackles, No rhonchi, No stridor Cardiac/Chest: regular rate, rhythm, No JVD Skin: normal color, warm/dry Neuro/Psych: alert, normal mood/affect, oriented x 3, No motor weakness ICD10 Worksheet Patient Problems: Problems Problem Status Onset Fracture of fifth metatarsal bone of left foot Acute Right fibular fracture Acute Right tibial fracture Acute
[2018-09-08] MEDS: TAMSULOSIN HCL 0.4 MG CAP PO SCH (16:28)
[2018-09-08] MEDS: ATORVASTATIN CALCIUM 40 MG TAB PO SCH (21:10)
[2018-09-09] MEDS: HYDROmorphONE/DILAUDID 2 MG TAB PO PRN ×2 (00:25→15:55)
[2018-09-09] MEDS: ACETAMINOPHEN 500 MG TAB PO SCH ×4 (06:41→21:20)
[2018-09-09] MEDS: INSULIN LISPRO 100 UNIT/ML SC SCH ×3 (07:45→17:29)
[2018-09-09] MEDS: TAMSULOSIN HCL 0.4 MG CAP PO SCH (08:20)
[2018-09-09] MEDS: PANTOPRAZOLE SODIUM 40 MG TAB PO SCH (08:20)
[2018-09-09] MEDS: PIOGLITAZONE HCL 15 MG TAB PO SCH (08:20)
[2018-09-09] MEDS: GLIMEPIRIDE 2 MG TAB PO SCH (08:20)
[2018-09-09] MEDS: metFORMIN HCL 500 MG TAB PO SCH ×2 (08:20→17:31)
[2018-09-09] MEDS: CHOLECALCIFEROL VIT D3 1,000 UNITS TAB PO SCH (08:21)
[2018-09-09] MEDS: SENNOSIDES/DOCUSATE SODIUM TAB PO SCH ×2 (08:21→21:20)
[2018-09-09] MEDS: LISINOPRIL 5 MG TAB PO SCH (08:21)
[2018-09-09] MEDS: ENOXAPARIN 40 MG/0.4 ML SYR SC SCH (08:21)
[2018-09-09] MEDS: MULTIVITAMINS 1 EACH TAB PO SCH (08:21)
--- NOTE | 2018-09-09 13:00 | SOAPPROG ---
SOAP Progress Note Assessment/Plan: Assessment: Debility with partial weightbearing on the left lower extremity complicated by obesity. * Initial functional independence measure is 60 on 09/09/2018. Moderate to maximal assist for sliding board transfers. Moderate assist for transfers using the Cindi Stedy. Grooming and hygiene were done seated with modified independence. Upper body dressing required minimal assist, lower body ordered dressing required total assist of 2 including assist to maintain standing tight pants. 2 person transfer to shower chair. Moderate assist for bathing. * Continue PT and OT to optimize mobility and activities of daily living to the modified independent level for return to his independent. Cognitive impairment with history of TBI. Scored 19/30 on the [place] cognitive Assessment. Decreased memory and executive function. Also noted to be impulsive perseverative and tangential. * Continue SCHOOL BASED THERAPIST. Hypoxia. V/Q scan 09/08/2018 low probability for pulmonary embolus. Anemia may contribute. BNP 09/08/2018 not consistent with CHF. Encourage incentive spirometry. Right heel pain. Obtained x-ray of right calcaneus, 09/08/2018. Nondisplaced fracture was seen. Discussed with orthopedic surgeon Dr. Lema, 09/08/2018. No change in weight-bearing status. Pain management. He reports that hydromorphone has been the most effective medication. opiate from the acetaminophen. Scheduled acetaminophen 1000 mg q.8 hours; ordered hydromorphone 2 to 4 mg q.4 hours p.r.n. He should be offered hydromorphone prior to therapy sessions so that he can have adequate pain control to participate in therapy. Urinary frequency. Bladder scan approximately 200 cc after voiding approximately 200 cc, 09/08/2018. Initiated tamsulosin, 09/08/2018. Continue to monitor. Diabetes mellitus, type 2. Continue current medications with glimepiride, metformin and pioglitazone. Continue insulin sliding scale with which he was treated in the hospital. Osteoporosis. It might be in his best interest to discontinue pioglitazone and to initiate an alternate hyperglycemic such as a GLP-1 agonist. Continue cholecalciferol. He should consider initiating bisphosphonate therapy after his discharge. He should consider consultation with Endocrinology. Hypertension. Continue lisinopril and monitor blood pressures. Opiate-induced constipation. Continue bowel program with polyethylene glycol on a p.r.n. basis and scheduled senna/docusate. I will also order a bisacodyl suppository on an as-needed basis. Prophylaxis. High risk for DVT. Continue enoxaparin 40 mg q.day subcutaneous; may need to continue until weight-bearing is restored. DISPOSITION: Attended staffing, 15 min. Discussed with case management, dietitian, nursing, PT, OT, SCHOOL BASED THERAPIST. Goal is to achieve independence with transfers and mobility. Discharge date set for 09/21/2018. Goal to discharge back to independent living facility with extra assistance as needed. Followup: His primary care provider is Dr. Rajan Lopez, and he can see her in followup after his discharge. He is to follow up with orthopedic surgeon, Dr. Emi Kirk, in 1 week for postoperative visit. Instructions regarding wound care are to leave dressings in place until followup with orthopedics. 09/09/18 12:52 Subjective: Slept better last night. Still has urinary frequency. Had incontinence overnight. Still has heel pain but tolerating. Objective: Vital Signs Temp Pulse Resp BP Pulse Ox 37.2 C 70 18 115/82 H 93 09/09/18 08:00 09/09/18 08:00 09/09/18 08:00 09/09/18 08:21 09/09/18 08:00 Laboratory Results 09/08/18 06:00 09/08/18 06:00 09/08/18 09/09/18 09/10/18 05:59 05:59 05:59 Intake Total 240 1695 Output Total 300 1150 200 Balance -60 545 -200 - Time Spent With Patient Time Spent With Patient: Greater than 35 min floor time today, including more than 50% of time in coordination of care during staffing meeting, and counseling patient. Physical Exam - Physical Exam General Appearance: WD/WN, alert, no apparent distress, obese Respiratory: normal breath sounds, No crackles, No rhonchi, No wheezing Cardiac/Chest: regular rate, rhythm, No diastolic murmur, No systolic murmur Skin: normal color, warm/dry Neuro/Psych: no motor/sensory deficits, alert, normal mood/affect, oriented x 3 ICD10 Worksheet Patient Problems: Problems Problem Status Onset Fracture of fifth metatarsal bone of left foot Acute Right fibular fracture Acute Right tibial fracture Acute
--- NOTE | 2018-09-09 14:06 | PDOREHIP ---
Admission [facility] - Admission - 3 Day Assessment Period Admission Date/Day 1: 09/07/18 Day 2: 09/08/18 Day 3: 09/09/18 - Active Diagnoses Comorbidities and Co-existing Conditions at Admission: 81277. DM (e.g. diabetic retinopathy, nephropathy, and neuropathy) - Skin Conditions Unhealed Pressure Ulcer (1 or more/Stage 1 or >)-Admission: 0. No # Stage 1 Pressure Ulcers-Admission: 0 # Stage 2 Pressure Ulcers-Admission: 0 # Stage 3 Pressure Ulcers-Admission: 0 # Stage 4 Pressure Ulcers-Admission: 0 # Unstageable Pressure Ulcers (Non-remove Dress)-Admission: 0 # Unstageable Pressure Ulcers (Slough/Eschar)-Admission: 0 # Unstageable Pressure Ulcers (Deep Tissue Injury)-Admission: 0
[2018-09-09] MEDS: ATORVASTATIN CALCIUM 40 MG TAB PO SCH (21:20)
[2018-09-10] MEDS: ACETAMINOPHEN 500 MG TAB PO SCH ×3 (05:15→21:56)
[2018-09-10] MEDS: HYDROmorphONE/DILAUDID 2 MG TAB PO PRN ×3 (07:05→19:48)
[2018-09-10] MEDS: INSULIN LISPRO 100 UNIT/ML SC SCH ×3 (08:13→17:35)
[2018-09-10] MEDS: CHOLECALCIFEROL VIT D3 1,000 UNITS TAB PO SCH (08:48)
[2018-09-10] MEDS: GLIMEPIRIDE 2 MG TAB PO SCH (08:48)
[2018-09-10] MEDS: PIOGLITAZONE HCL 15 MG TAB PO SCH (08:49)
[2018-09-10] MEDS: PANTOPRAZOLE SODIUM 40 MG TAB PO SCH (08:49)
[2018-09-10] MEDS: SENNOSIDES/DOCUSATE SODIUM TAB PO SCH ×2 (08:49→21:56)
[2018-09-10] MEDS: LISINOPRIL 5 MG TAB PO SCH (08:49)
[2018-09-10] MEDS: metFORMIN HCL 500 MG TAB PO SCH ×2 (08:49→17:18)
[2018-09-10] MEDS: ENOXAPARIN 40 MG/0.4 ML SYR SC SCH (08:50)
[2018-09-10] MEDS: MULTIVITAMINS 1 EACH TAB PO SCH (08:50)
[2018-09-10] MEDS: TAMSULOSIN HCL 0.4 MG CAP PO SCH (08:50)
--- NOTE | 2018-09-10 10:04 | SOAPPROG ---
SOAP Progress Note Assessment/Plan: Assessment: Debility with partial weightbearing on the RIGHT lower extremity complicated by obesity. 100% WEIGHT-BEARING LEFT LOWER EXTREMITY. * Initial functional independence measure is 60 on 09/09/2018. Moderate to maximal assist for sliding board transfers. Moderate assist for transfers using the Cindi Stedy. Grooming and hygiene were done seated with modified independence. Upper body dressing required minimal assist, lower body ordered dressing required total assist of 2 including assist to maintain standing tight pants. 2 person transfer to shower chair. Moderate assist for bathing. * Continue PT and OT to optimize mobility and activities of daily living to the modified independent level for return to his independent. Cognitive impairment with history of TBI. Scored 19/30 on the [place] cognitive Assessment. Decreased memory and executive function. Also noted to be impulsive perseverative and tangential. 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 Hypoxia. V/Q scan 09/08/2018 low probability for pulmonary embolus. Anemia may contribute. BNP 09/08/2018 not consistent with CHF. Encourage incentive spirometry. PATIENT REPORTS HE IS PERFORMING INCENTIVE SPIROMETRY 10 PUFFS PER HOUR. DENIES SHORTNESS OF BREATH. DENIES PRODUCTIVE COUGH BUT DOES REPORT NASAL CONGESTION. HAS HISTORY OF SINUSITIS BUT DENIES SINUS PRESSURE HEADACHE. WAS PREVIOUSLY TAKING ZYRTEC AND WILL ADD THIS TO CURRENT MEDICATIONS IF NOT ON CURRENT MED LIST. Right heel pain. Obtained x-ray of right calcaneus, 09/08/2018. Nondisplaced fracture was seen. Discussed with orthopedic surgeon Dr. Lema, 09/08/2018. No change in weight-bearing status. HE WILL REMAIN 50% WEIGHT-BEARING RIGHT LOWER EXTREMITY DUE TO TIB/FIB FRACTURE Pain management. He reports that hydromorphone has been the most effective medication. opiate from the acetaminophen. Scheduled acetaminophen 1000 mg q.8 hours; ordered hydromorphone 2 to 4 mg q.4 hours p.r.n. He should be offered hydromorphone prior to therapy sessions so that he can have adequate pain control to participate in therapy. Urinary frequency. Bladder scan approximately 200 cc after voiding approximately 200 cc, 09/08/2018. Initiated tamsulosin, 09/08/2018. Continue to monitor. PATIENT DENIED NOCTURIA 3/8 P.M. Diabetes mellitus, type 2. BLOOD GLUCOSE LEVEL 09/10 WAS 127 Continue current medications with glimepiride, metformin and pioglitazone. Continue insulin sliding scale with which he was treated in the hospital. Osteoporosis. It might be in his best interest to discontinue pioglitazone and to initiate an alternate hyperglycemic such as a GLP-1 agonist. Continue cholecalciferol. He should consider initiating bisphosphonate therapy after his discharge. He should consider consultation with Endocrinology. Hypertension. Continue lisinopril and monitor blood pressures. BLOOD PRESSURE 3/9 A.M. 125/92 Opiate-induced constipation. Continue bowel program with polyethylene glycol on a p.r.n. basis and scheduled senna/docusate. I will also order a bisacodyl suppository on an as-needed basis. ALLERGIC RHINITIS-WILL BEGIN ZYRTEC. WILL ORDER NASAL SALINE SPRAY TO KEEP NASAL MEMBRANES MOIST AND TO HELP BREAK UP CONGESTION. ALSO HAS AN ALBUTEROL INHALER IN ROOM LOCK BOX AND WILL CONFIRM WITH PHARMACY TO SEE IF HE HAS AN ORDER FOR THIS. Prophylaxis. High risk for DVT. Continue enoxaparin 40 mg q.day subcutaneous; may need to continue until weight-bearing is restored. DISPOSITION: Attended staffing, 15 min. Discussed with case management, dietitian, nursing, PT, OT, ANTENNA ENGINEER. Goal is to achieve independence with transfers and mobility. Discharge date set for 09/21/2018. Goal to discharge back to independent living facility with extra assistance as needed. Followup: His primary care provider is Dr. Rajan Lopez, and he can see her in followup after his discharge. He is to follow up with orthopedic surgeon, Dr. Emi Kirk, in 1 week for postoperative visit. Instructions regarding wound care are to leave dressings in place until followup with orthopedics. Plan: 09/10/18 10:04 Subjective: HE IS COMPLAINING OF NASAL CONGESTION. He does not report sinus pain, pressure or headaches. Denies productive cough or shortness of breath. He reports he is using his incentive spirometer 10 times per hour. He reports he slept poorly last night secondary to positioning. He also had questions as to why his inhaler was locked in a box in his room. Objective: Vital Signs Temp Pulse Resp BP Pulse Ox 36.6 C 83 18 125/92 H 92 09/10/18 06:18 09/10/18 06:18 09/10/18 06:18 09/10/18 08:49 09/10/18 06:18 Laboratory Results 09/08/18 06:00 09/08/18 06:00 09/09/18 09/10/18 09/11/18 05:59 05:59 06:59 Intake Total 1695 610 Output Total 1150 2100 Balance 545 -1490 Physical Exam - Physical Exam General Appearance: WD/WN, alert, other (O2 per nasal cannula) Respiratory: lungs clear, normal breath sounds Cardiac/Chest: No edema Abdomen: normal bowel sounds, non-tender, soft Extremities: other (Right cast shoe in place. Left walking boot in place.), No swelling, No Betsy's sign Neuro/Psych: alert, normal mood/affect, oriented x 3, motor weakness ( Demonstrates 4+/5 right and left quadriceps and hamstring strength. Negative Tinel's peroneal nerve right fibular head), No sensory deficit ICD10 Worksheet Patient Problems: Problems Problem Status Onset Fracture of fifth metatarsal bone of left foot Acute Right fibular fracture Acute Right tibial fracture Acute
[2018-09-10] MEDS ORDERED: SODIUM CL NASAL GEL 14.1 GM TUBE TP PRN (10:17)
[2018-09-10] MEDS: CETIRIZINE 10 MG TAB PO SCH (12:04)
[2018-09-10] MEDS: ATORVASTATIN CALCIUM 40 MG TAB PO SCH (21:57)
[2018-09-11] MEDS: ACETAMINOPHEN 500 MG TAB PO SCH ×3 (05:29→20:46)
[2018-09-11] MEDS: HYDROmorphONE/DILAUDID 2 MG TAB PO PRN ×3 (07:29→20:47)
[2018-09-11] MEDS: SENNOSIDES/DOCUSATE SODIUM TAB PO SCH ×2 (08:49→20:48)
[2018-09-11] MEDS: LISINOPRIL 5 MG TAB PO SCH (08:49)
[2018-09-11] MEDS: CHOLECALCIFEROL VIT D3 1,000 UNITS TAB PO SCH (08:49)
[2018-09-11] MEDS: metFORMIN HCL 500 MG TAB PO SCH ×2 (08:49→17:17)
[2018-09-11] MEDS: CETIRIZINE 10 MG TAB PO SCH (08:49)
[2018-09-11] MEDS: TAMSULOSIN HCL 0.4 MG CAP PO SCH (08:49)
[2018-09-11] MEDS: PANTOPRAZOLE SODIUM 40 MG TAB PO SCH (08:49)
[2018-09-11] MEDS: GLIMEPIRIDE 2 MG TAB PO SCH (08:49)
[2018-09-11] MEDS: ENOXAPARIN 40 MG/0.4 ML SYR SC SCH (08:50)
[2018-09-11] MEDS: MULTIVITAMINS 1 EACH TAB PO SCH (08:50)
[2018-09-11] MEDS: INSULIN LISPRO 100 UNIT/ML SC SCH ×3 (08:50→17:12)
[2018-09-11] MEDS: PIOGLITAZONE HCL 15 MG TAB PO SCH (08:50)
--- NOTE | 2018-09-11 09:08 | SOAPPROG ---
SOAP Progress Note Assessment/Plan: Assessment: Debility with partial weightbearing on the RIGHT lower extremity complicated by obesity. 100% WEIGHT-BEARING LEFT LOWER EXTREMITY. * Initial functional independence measure is 60 on 09/09/2018. Moderate to maximal assist for sliding board transfers. Moderate assist for transfers using the Cindi Stedy. Grooming and hygiene were done seated with modified independence. Upper body dressing required minimal assist, lower body ordered dressing required total assist of 2 including assist to maintain standing tight pants. 2 person transfer to shower chair. Moderate assist for bathing. * Continue PT and OT to optimize mobility and activities of daily living to the modified independent level for return to his independent. Cognitive impairment with history of TBI. Scored 19/30 on the Aleksandr cognitive Assessment. Decreased memory and executive function. Also noted to be impulsive perseverative and tangential. 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 Hypoxia. V/Q scan 09/08/2018 low probability for pulmonary embolus. Anemia may contribute. BNP 09/08/2018 not consistent with CHF. Encourage incentive spirometry. PATIENT REPORTS HE IS PERFORMING INCENTIVE SPIROMETRY 10 PUFFS PER HOUR. DENIES SHORTNESS OF BREATH. DENIES PRODUCTIVE COUGH BUT DOES REPORT NASAL CONGESTION. HAS HISTORY OF SINUSITIS BUT DENIES SINUS PRESSURE HEADACHE. WAS PREVIOUSLY TAKING ZYRTEC AND WILL ADD THIS TO CURRENT MEDICATIONS IF NOT ON CURRENT MED LIST. Right heel pain. Obtained x-ray of right calcaneus, 09/08/2018. Nondisplaced fracture was seen. Discussed with orthopedic surgeon Dr. Lema, 09/08/2018. No change in weight-bearing status. HE WILL REMAIN 50% WEIGHT-BEARING RIGHT LOWER EXTREMITY DUE TO TIB/FIB FRACTURE WOUND CARE-ONLY PROXIMAL LEG INCISION WAS INSPECTED WHICH SHOWED GRAY IN PLACE, NO EVIDENCE OF INDURATION, ERYTHEMA OR DISCHARGE. ON TUESDAY 09/12 NURSING TO CONFIRM SURGEON'S ORDERS REGARDING WOUND CARE. Pain management. PATIENT REPORTS THAT HE STILL HAS RIGHT LOWER EXTREMITY PAIN BUT HE DOES NOT WANT TO TAKE ADDITIONAL PAIN MEDICATIONS. He reports that hydromorphone has been the most effective medication. opiate from the acetaminophen. Scheduled acetaminophen 1000 mg q.8 hours; ordered hydromorphone 2 to 4 mg q.4 hours p.r.n. He should be offered hydromorphone prior to therapy sessions so that he can have adequate pain control to participate in therapy. Urinary frequency. Bladder scan approximately 200 cc after voiding approximately 200 cc, 09/08/2018. Initiated tamsulosin, 09/08/2018. Continue to monitor. PATIENT REPORTS THAT HE HAD TO URINATE EVERY 2 HR LAST NIGHT. THEREFORE, CONSIDER INCREASING FLOMAX ON 09/12. ALSO COUNSELED PATIENT THAT HE MAY WANT TO STOP DRINKING FLUIDS AFTER DINNER. ALSO DISCUSSED WITH NURSING. Diabetes mellitus, type 2. BLOOD GLUCOSE LEVEL 10 A.M. 132. Continue current medications with glimepiride, metformin and pioglitazone. Continue insulin sliding scale with which he was treated in the hospital. Osteoporosis. It might be in his best interest to discontinue pioglitazone and to initiate an alternate hyperglycemic such as a GLP-1 agonist. Continue cholecalciferol. He should consider initiating bisphosphonate therapy after his discharge. He should consider consultation with Endocrinology. Hypertension. Continue lisinopril and monitor blood pressures. BLOOD PRESSURE 09/11 130/81. Opiate-induced constipation. Continue bowel program with polyethylene glycol on a p.r.n. basis and scheduled senna/docusate. I will also order a bisacodyl suppository on an as-needed basis. ALLERGIC RHINITIS-ZYRTEC ORDERED YESTERDAY. PATIENT HAS LESS NASAL CONGESTION TODAY. ENCOURAGED USE OF NASAL SALINE SPRAY ESPECIALLY SINCE HE HAS SUPPLEMENTAL O2 PER NASAL CANNULA WHICH TENDS TO DRY OUT THE MUCOUS MEMBRANES. ALSO HAS ALBUTEROL INHALER WHICH HE CAN USE P.R.N. Q.4 HOURS Prophylaxis. High risk for DVT. Continue enoxaparin 40 mg q.day subcutaneous; may need to continue until weight-bearing is restored. DISPOSITION: Attended staffing, 15 min. Discussed with case management, dietitian, nursing, PT, OT, RESTAURANT SERVICE MANAGER. Goal is to achieve independence with transfers and mobility. Discharge date set for 09/21/2018. Goal to discharge back to independent living facility with extra assistance as needed. Followup: His primary care provider is Dr. Rajan Lopez, and he can see her in followup after his discharge. He is to follow up with orthopedic surgeon, Dr. Emi Kirk, in 1 week for postoperative visit. Instructions regarding wound care are to leave dressings in place until followup with orthopedics. 09/11/18 09:15 Subjective: He reports poor sleep secondary to nocturia every 2 hr. Denies shortness of breath. He reports right lower extremity pain but does not feel it is severe enough to warrant increased pain medications. No other problems reported by patient or nursing staff. Objective: Vital Signs Temp Pulse Resp BP Pulse Ox 36.7 C 57 L 17 130/81 H 92 09/11/18 05:55 09/11/18 05:55 09/11/18 05:55 09/11/18 08:49 09/11/18 05:55 Laboratory Results 09/08/18 06:00 09/08/18 06:00 09/10/18 09/11/18 09/12/18 04:59 05:59 05:59 Intake Total Output Total Balance Physical Exam - Physical Exam General Appearance: WD/WN, alert, other (O2 per nasal cannula) EENT: other (Upper airway congestion) Respiratory: lungs clear, normal breath sounds, No crackles, No rales, No rhonchi, No wheezing Cardiac/Chest: edema (Bilateral pedal edema more pronounced on the right.), systolic murmur Abdomen: normal bowel sounds, non-tender, soft Skin: other (Upper leg incision inspected. Gray in place. No erythema, induration or drainage. ) ICD10 Worksheet Patient Problems: Problems Problem Status Onset Fracture of fifth metatarsal bone of left foot Acute Right fibular fracture Acute Right tibial fracture Acute
[2018-09-11] MEDS: BISACODYL 10 MG SUPP PR PRN (17:45)
[2018-09-11] MEDS: ATORVASTATIN CALCIUM 40 MG TAB PO SCH (20:46)
[2018-09-12] MEDS: ACETAMINOPHEN 500 MG TAB PO SCH ×4 (06:00→23:28)
[2018-09-12] MEDS: INSULIN LISPRO 100 UNIT/ML SC SCH ×3 (07:53→18:36)
[2018-09-12] MEDS: metFORMIN HCL 500 MG TAB PO SCH ×2 (07:54→20:25)
[2018-09-12] MEDS: ENOXAPARIN 40 MG/0.4 ML SYR SC SCH (07:54)
[2018-09-12] MEDS: CETIRIZINE 10 MG TAB PO SCH (09:01)
[2018-09-12] MEDS: CHOLECALCIFEROL VIT D3 1,000 UNITS TAB PO SCH (09:02)
[2018-09-12] MEDS: GLIMEPIRIDE 2 MG TAB PO SCH (09:02)
[2018-09-12] MEDS: LISINOPRIL 5 MG TAB PO SCH (09:03)
[2018-09-12] MEDS: MULTIVITAMINS 1 EACH TAB PO SCH (09:03)
[2018-09-12] MEDS: TAMSULOSIN HCL 0.4 MG CAP PO SCH (09:04)
[2018-09-12] MEDS: PANTOPRAZOLE SODIUM 40 MG TAB PO SCH (09:04)
[2018-09-12] MEDS: PIOGLITAZONE HCL 15 MG TAB PO SCH (09:05)
[2018-09-12] MEDS: SENNOSIDES/DOCUSATE SODIUM TAB PO SCH ×2 (09:06→20:25)
[2018-09-12] MEDS: HYDROmorphONE/DILAUDID 2 MG TAB PO PRN ×2 (10:39→23:29)
--- NOTE | 2018-09-12 12:01 | SOAPPROG ---
SOAP Progress Note Assessment/Plan: Assessment: Debility with partial weightbearing on the left lower extremity complicated by obesity. * Initial functional independence measure is 60 on 09/09/2018. Moderate to maximal assist for sliding board transfers. Moderate assist for transfers using the Cindi Stedy. Grooming and hygiene were done seated with modified independence. Upper body dressing required minimal assist, lower body ordered dressing required total assist of 2 including assist to maintain standing tight pants. 2 person transfer to shower chair. Moderate assist for bathing. * Continue PT and OT to optimize mobility and activities of daily living to the modified independent level for return to his independent living facility. Cognitive impairment with history of TBI. Scored 19/30 on the [place] cognitive Assessment. Decreased memory and executive function. Also noted to be impulsive perseverative and tangential. 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 Hypoxia. V/Q scan 09/08/2018 low probability for pulmonary embolus. Anemia may contribute. BNP 09/08/2018 not consistent with CHF. Encourage incentive spirometry. * Recheck CBC, 09/13/2018. Right heel pain. Obtained x-ray of right calcaneus, 09/08/2018. Nondisplaced fracture was seen. Discussed with orthopedic surgeon Dr. Lema, 09/08/2018. No change in weight-bearing status. Pain management. He reports that hydromorphone has been the most effective medication. opiate from the acetaminophen. Scheduled acetaminophen 1000 mg q.8 hours; ordered hydromorphone 2 to 4 mg q.4 hours p.r.n. He should be offered hydromorphone prior to therapy sessions so that he can have adequate pain control to participate in therapy. Urinary frequency. Bladder scan approximately 200 cc after voiding approximately 200 cc, 09/08/2018. Initiated tamsulosin, 09/08/2018. He reports improvement in nocturia on discussion, 09/12/2018. Depression versus adjustment disorder with depressed mood. Initiate citalopram 10 mg q.day starting 09/12/2018. Continue to monitor. Diabetes mellitus, type 2. Continue current medications with glimepiride, metformin and pioglitazone. Continue insulin sliding scale with which he was treated in the hospital. Osteoporosis. It might be in his best interest to discontinue pioglitazone and to initiate an alternate hyperglycemic such as a GLP-1 agonist. Continue cholecalciferol. He should consider initiating bisphosphonate therapy after his discharge. He should consider consultation with Endocrinology. Hypertension. Continue lisinopril and monitor blood pressures. Opiate-induced constipation. Continue bowel program with polyethylene glycol on a p.r.n. basis and scheduled senna/docusate. I will also order a bisacodyl suppository on an as-needed basis. Prophylaxis. High risk for DVT. Continue enoxaparin 40 mg q.day subcutaneous; may need to continue until weight-bearing is restored. DISPOSITION: Goal is to achieve independence with transfers and mobility. Discharge date set for 09/21/2018. Goal to discharge back to independent living facility with extra assistance as needed. Followup: His primary care provider is Dr. Rajan Lopez, and he can see her in followup after his discharge. He is to follow up with orthopedic surgeon, Dr. Emi Kirk, in 1 week for postoperative visit. Instructions regarding wound care are to leave dressings in place until followup with orthopedics. 09/12/18 12:01 Subjective: Reports he is doing "not so good ". Still has right heel pain, which limits his ability to stand. Therapist is unclear whether he is able to comply with 50 % weight-bearing restriction. He needing assistance with many ADLs and will likely continue to need assistance when he discharges. He is sleeping well. No cough or dyspnea but still requires oxygen. No chest pain. No fevers or chills. Nocturia has improved. Objective: Vital Signs Temp Pulse Resp BP Pulse Ox 36.9 C 55 L 16 123/90 H 96 09/12/18 07:46 09/12/18 07:46 09/12/18 07:46 09/12/18 07:46 09/12/18 07:46 Laboratory Results 09/08/18 06:00 09/08/18 06:00 09/11/18 09/12/18 09/13/18 05:59 05:59 05:59 Intake Total 1940 250 Output Total 1700 Balance 240 250 Physical Exam - Physical Exam General Appearance: WD/WN, alert, no apparent distress Respiratory: normal breath sounds, decreased breath sounds (Decreased respiratory excursion), No crackles, No rhonchi, No wheezing Cardiac/Chest: regular rate, rhythm, No edema, No diastolic murmur, No systolic murmur Skin: normal color, warm/dry Neuro/Psych: alert, normal mood/affect, oriented x 3, depressed affect ICD10 Worksheet Patient Problems: Problems Problem Status Onset Fracture of fifth metatarsal bone of left foot Acute Right fibular fracture Acute Right tibial fracture Acute
[2018-09-12] MEDS: ATORVASTATIN CALCIUM 40 MG TAB PO SCH (20:26)
[2018-09-13] MEDS: ACETAMINOPHEN 500 MG TAB PO SCH ×2 (06:22→15:19)
[2018-09-13] MEDS: INSULIN LISPRO 100 UNIT/ML SC SCH ×3 (07:10→16:42)
[2018-09-13] MEDS: HYDROmorphONE/DILAUDID 2 MG TAB PO PRN ×2 (07:10→22:56)
[2018-09-13] MEDS: PIOGLITAZONE HCL 15 MG TAB PO SCH (07:45)
[2018-09-13] MEDS: GLIMEPIRIDE 2 MG TAB PO SCH (07:45)
[2018-09-13] MEDS: metFORMIN HCL 500 MG TAB PO SCH ×2 (07:45→20:26)
[2018-09-13] MEDS: CETIRIZINE 10 MG TAB PO SCH (07:45)
[2018-09-13] MEDS: TAMSULOSIN HCL 0.4 MG CAP PO SCH (07:46)
[2018-09-13] MEDS: CITALOPRAM 20 MG TAB PO SCH (07:46)
[2018-09-13] MEDS: CHOLECALCIFEROL VIT D3 1,000 UNITS TAB PO SCH (07:48)
[2018-09-13] MEDS: LISINOPRIL 5 MG TAB PO SCH (07:48)
[2018-09-13] MEDS: PANTOPRAZOLE SODIUM 40 MG TAB PO SCH (07:48)
[2018-09-13] MEDS: ENOXAPARIN 40 MG/0.4 ML SYR SC SCH ×2 (07:48→10:29)
[2018-09-13] MEDS: MULTIVITAMINS 1 EACH TAB PO SCH (07:48)
[2018-09-13] MEDS: SENNOSIDES/DOCUSATE SODIUM TAB PO SCH ×2 (07:50→20:27)
--- NOTE | 2018-09-13 12:24 | SOAPPROG ---
SOAP Progress Note Assessment/Plan: Assessment: Debility with partial weightbearing on the left lower extremity complicated by obesity. * Initial functional independence measure is 60 on 09/09/2018. Moderate to maximal assist for sliding board transfers. Moderate assist for transfers using the Cindi Stedy. Grooming and hygiene were done seated with modified independence. Upper body dressing required minimal assist, lower body dressing required total assist of 2 including assist to maintain standing tight pants. 2 person transfer to shower chair. Moderate assist for bathing. * Advanced to slide board transfers and no longer using Cindi steady as of 2018. * Continue PT and OT to optimize mobility and activities of daily living to the modified independent level for return to his independent living facility. Cognitive impairment with history of TBI. Scored 19/30 on the Aleksandr cognitive Assessment. Decreased memory and executive function. Also noted to be impulsive, perseverative and tangential. 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 Hypoxia. V/Q scan 09/08/2018 low probability for pulmonary embolus. Anemia may contribute. BNP 09/08/2018 not consistent with CHF. Encourage incentive spirometry. * Anemia improving on 09/13/2018. * Get Doppler ultrasound study of lower extremities, 09/13/2018, as V/Q scan has reduced sensitivity with high pretest probability, and he continues to have hypoxia, and he has calf tenderness. Right heel pain. Obtained x-ray of right calcaneus, 09/08/2018. Nondisplaced fracture was seen. Discussed with orthopedic surgeon Dr. Lema, 09/08/2018. No change in weight-bearing status. Pain management. He reports that hydromorphone has been the most effective medication. opiate from the acetaminophen. Scheduled acetaminophen 1000 mg q.8 hours; ordered hydromorphone 2 to 4 mg q.4 hours p.r.n. He should be offered hydromorphone prior to therapy sessions so that he can have adequate pain control to participate in therapy. * Using 2 doses per day of 2 mg for the past 2 days as of 09/13/2018; the prior day he used 3 doses. Urinary frequency. Bladder scan approximately 200 cc after voiding approximately 200 cc, 09/08/2018. Initiated tamsulosin, 09/08/2018. He reports improvement in nocturia on discussion, 09/12/2018. * Most recent bladder scan postvoid residual on 09/11/2018 was 62 cc. Depression versus adjustment disorder with depressed mood. Initiate citalopram 10 mg q.day starting 09/13/2018. Continue to monitor. * Consider short-term use of stimulants such as methylphenidate for more rapid onset. Diabetes mellitus, type 2. Continue current medications with glimepiride, metformin and pioglitazone. Continue insulin sliding scale with which he was treated in the hospital. Osteoporosis. It might be in his best interest to discontinue pioglitazone and to initiate an alternate hyperglycemic such as a GLP-1 agonist. Continue cholecalciferol. He should consider initiating bisphosphonate therapy after his discharge. He should consider consultation with Endocrinology. Hypertension. Continue lisinopril and monitor blood pressures. Opiate-induced constipation. Continue bowel program with polyethylene glycol on a p.r.n. basis and scheduled senna/docusate. Continue bisacodyl suppository on an as-needed basis. Prophylaxis. High risk for DVT. Continue enoxaparin 40 mg q.day subcutaneous; may need to continue until weight-bearing is restored. Hold aspirin while on enoxaparin. DISPOSITION: Goal is to achieve independence with transfers and mobility. Discharge date set for 09/21/2018. Goal to discharge back to independent living facility with extra assistance as needed. Followup: His primary care provider is Dr. Rajan Lopez, and he can see her in followup after his discharge. He is to follow up with orthopedic surgeon, Dr. Emi Kirk, in 1 week for postoperative visit. Instructions regarding wound care are to leave dressings in place until followup with orthopedics. 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 He complains of feeling "so-so."He denies cough or dyspnea, pain, dysuria or urinary frequency though he continues to have nocturia, or fevers or chills. He reports poor sleep. Objective: Vital Signs Temp Pulse Resp BP Pulse Ox 37.2 C 63 16 117/66 93 09/13/18 06:44 09/13/18 10:53 09/13/18 06:44 09/13/18 10:53 09/13/18 10:53 Laboratory Results 09/13/18 09:09 09/08/18 06:00 09/12/18 09/13/18 09/14/18 05:59 05:59 05:59 Intake Total 1940 1180 340 Output Total 6977 725 300 Balance 240 455 40 Physical Exam - Physical Exam General Appearance: WD/WN, alert, no apparent distress, other (Sleepy) Respiratory: normal breath sounds, No crackles, No rhonchi, No wheezing Cardiac/Chest: regular rate, rhythm, No diastolic murmur, No systolic murmur Skin: normal color, warm/dry Extremities: calf tenderness (Right calf) Neuro/Psych: alert, normal mood/affect ICD10 Worksheet Patient Problems: Problems Problem Status Onset Fracture of fifth metatarsal bone of left foot Acute Right fibular fracture Acute Right tibial fracture Acute
[2018-09-13] MEDS: ATORVASTATIN CALCIUM 40 MG TAB PO SCH (20:27)
[2018-09-14] MEDS: ACETAMINOPHEN 500 MG TAB PO SCH ×4 (01:29→23:29)
[2018-09-14] MEDS: HYDROmorphONE/DILAUDID 2 MG TAB PO PRN ×2 (03:10→12:50)
[2018-09-14] MEDS: INSULIN LISPRO 100 UNIT/ML SC SCH ×3 (08:09→23:32)
[2018-09-14] MEDS: metFORMIN HCL 500 MG TAB PO SCH ×2 (08:21→22:02)
[2018-09-14] MEDS: CHOLECALCIFEROL VIT D3 1,000 UNITS TAB PO SCH (08:21)
[2018-09-14] MEDS: TAMSULOSIN HCL 0.4 MG CAP PO SCH (08:22)
[2018-09-14] MEDS: MULTIVITAMINS 1 EACH TAB PO SCH (08:22)
[2018-09-14] MEDS: LISINOPRIL 5 MG TAB PO SCH (08:22)
[2018-09-14] MEDS: PIOGLITAZONE HCL 15 MG TAB PO SCH (08:22)
[2018-09-14] MEDS: CITALOPRAM 20 MG TAB PO SCH (08:22)
[2018-09-14] MEDS: PANTOPRAZOLE SODIUM 40 MG TAB PO SCH (08:23)
[2018-09-14] MEDS: CETIRIZINE 10 MG TAB PO SCH (08:23)
[2018-09-14] MEDS: GLIMEPIRIDE 2 MG TAB PO SCH (08:23)
[2018-09-14] MEDS: ENOXAPARIN 40 MG/0.4 ML SYR SC SCH (08:23)
--- NOTE | 2018-09-14 09:50 | SOAPPROG ---
SOAP Progress Note Assessment/Plan: Assessment: Debility with partial weightbearing on the left lower extremity complicated by obesity. * Initial functional independence measure is 55 on 09/09/2018, inroved to 62 on . CGA to min assist for sliding board transfers. CGA for bed mobility. Grooming and hygiene were done seated with modified independence. Upper body dressing required SBA, lower body dressing with mod A. 2 person transfer to shower chair. Moderate assist for bathing. * Advanced to slide board transfers and no longer using Cindi steady as of 2018. * Continue PT and OT to optimize mobility and activities of daily living to the modified independent level for return to his independent living facility. Cognitive impairment with history of TBI. Scored 19/30 on the [place] cognitive Assessment. Decreased memory and executive function. Also noted to be impulsive, perseverative and tangential. * No changes as of 09/14/2018. * Continue MONOLOGIST. Hypoxia. V/Q scan 09/08/2018 low probability for pulmonary embolus. Anemia may contribute. BNP 09/08/2018 not consistent with CHF. Encourage incentive spirometry. * Anemia improving on 09/13/2018. * Doppler ultrasound study of lower extremities, 09/13/2018, ruled out DVT. Right heel pain. Obtained x-ray of right calcaneus, 09/08/2018. Nondisplaced fracture was seen. Discussed with orthopedic surgeon Dr. Lema, 09/08/2018. No change in weight-bearing status. Right mid foot pain 09/14/2018. No fracture on x-ray. Pain management. He reports that hydromorphone has been the most effective medication. opiate from the acetaminophen. Scheduled acetaminophen 1000 mg q.8 hours; ordered hydromorphone 2 to 4 mg q.4 hours p.r.n. He should be offered hydromorphone prior to therapy sessions so that he can have adequate pain control to participate in therapy. * Using 2 doses per day of 2 mg for the past 3 days as of 09/14/2018. Urinary frequency. Bladder scan approximately 200 cc after voiding approximately 200 cc, 09/08/2018. Initiated tamsulosin, 09/08/2018. He reports improvement in nocturia on discussion, 09/12/2018. * Most recent bladder scan postvoid residual on 09/11/2018 was 62 cc. Depression versus adjustment disorder with depressed mood. Initiate citalopram 10 mg q.day starting 09/13/2018. Continue to monitor. * Consider short-term use of stimulants such as methylphenidate for more rapid onset. Diabetes mellitus, type 2. Continue current medications with glimepiride, metformin and pioglitazone. Continue insulin sliding scale with which he was treated in the hospital. Osteoporosis. It might be in his best interest to discontinue pioglitazone and to initiate an alternate hyperglycemic such as a GLP-1 agonist. Continue cholecalciferol. He should consider initiating bisphosphonate therapy after his discharge. He should consider consultation with Endocrinology. Hypertension. Continue lisinopril and monitor blood pressures. Opiate-induced constipation. Continue bowel program with polyethylene glycol on a p.r.n. basis and scheduled senna/docusate. Continue bisacodyl suppository on an as-needed basis. Prophylaxis. High risk for DVT. Continue enoxaparin 40 mg q.day subcutaneous; may need to continue until weight-bearing is restored. Hold aspirin while on enoxaparin. DISPOSITION: Attended staffing, 15 min. D/W Case mgmt, ham passer, pharmacist, nurse, PT, OT, MONOLOGIST. Goal is to achieve independence with transfers and mobility. Discharge date set for 09/16/2018. Will need extra assistance at [facility]. Followup: His primary care provider is Dr. Rajan Lopez, and he can see her in followup after his discharge. He is to follow up with orthopedic surgeon, Dr. Emi Kirk, on 09/15/2018 for postoperative visit. Instructions regarding wound care are to leave dressings in place until followup with orthopedics. Consider Endocrinology evaluation re osteoporosis and DM2. 09/14/18 20:30 Subjective: Complains of right foot pain. Interfered with sleep. Hurts over the top of the mid foot. Hurts more with weight-bearing. Otherwise without complaints. No fevers or chills, no cough or dyspnea. Objective: Vital Signs Temp Pulse Resp BP Pulse Ox 36.8 C 63 17 128/77 H 92 09/14/18 06:30 09/14/18 06:30 09/14/18 06:30 09/14/18 08:22 09/14/18 06:30 Laboratory Results 09/13/18 09:09 09/08/18 06:00 09/13/18 09/14/18 09/15/18 05:59 05:59 05:59 Intake Total 1180 900 Output Total 042 3150 Balance 455 -615 - Time Spent With Patient Time Spent With Patient: Greater than 35 minutes floor time today, including more than 50% of time in coordination of care during staffing meeting, and counseling patient. Physical Exam - Physical Exam General Appearance: WD/WN, alert, no apparent distress, obese Respiratory: No respiratory distress, No accessory muscle use Skin: normal color, warm/dry Extremities: other (Right foot very tender over 1st to 2nd metatarsal or space in between them) Neuro/Psych: no motor/sensory deficits, alert, normal mood/affect, oriented x 3 ICD10 Worksheet Patient Problems: Problems Problem Status Onset Fracture of fifth metatarsal bone of left foot Acute Right fibular fracture Acute Right tibial fracture Acute
[2018-09-14] MEDS: SENNOSIDES/DOCUSATE SODIUM TAB PO SCH ×2 (10:33→22:02)
[2018-09-14] MEDS: ATORVASTATIN CALCIUM 40 MG TAB PO SCH (22:02)
[2018-09-15] MEDS: ACETAMINOPHEN 500 MG TAB PO SCH ×3 (05:21→20:53)
[2018-09-15] MEDS: HYDROmorphONE/DILAUDID 2 MG TAB PO PRN (07:14)
[2018-09-15] MEDS: INSULIN LISPRO 100 UNIT/ML SC SCH ×3 (07:45→17:46)
[2018-09-15] MEDS: MULTIVITAMINS 1 EACH TAB PO SCH (08:06)
[2018-09-15] MEDS: PANTOPRAZOLE SODIUM 40 MG TAB PO SCH (08:06)
[2018-09-15] MEDS: CHOLECALCIFEROL VIT D3 1,000 UNITS TAB PO SCH (08:06)
[2018-09-15] MEDS: SENNOSIDES/DOCUSATE SODIUM TAB PO SCH ×2 (08:06→20:53)
[2018-09-15] MEDS: ENOXAPARIN 40 MG/0.4 ML SYR SC SCH (08:06)
[2018-09-15] MEDS: LISINOPRIL 5 MG TAB PO SCH (08:07)
[2018-09-15] MEDS: CITALOPRAM 20 MG TAB PO SCH (08:07)
[2018-09-15] MEDS: PIOGLITAZONE HCL 15 MG TAB PO SCH (08:07)
[2018-09-15] MEDS: metFORMIN HCL 500 MG TAB PO SCH ×2 (08:07→20:53)
[2018-09-15] MEDS: GLIMEPIRIDE 2 MG TAB PO SCH (08:07)
[2018-09-15] MEDS: CETIRIZINE 10 MG TAB PO SCH (08:07)
[2018-09-15] MEDS: TAMSULOSIN HCL 0.4 MG CAP PO SCH (08:07)
--- NOTE | 2018-09-15 14:36 | SOAPPROG ---
SOAP Progress Note Assessment/Plan: Assessment: Debility with partial weightbearing on the left lower extremity complicated by obesity. * Initial functional independence measure is 55 on 09/09/2018, inroved to 62 on . CGA to min assist for sliding board transfers. CGA for bed mobility. Grooming and hygiene were done seated with modified independence. Upper body dressing required SBA, lower body dressing with mod A. 2 person transfer to shower chair. Moderate assist for bathing. * Advanced to slide board transfers and no longer using Cindi steady as of 2018. * Continue PT and OT to optimize mobility and activities of daily living to the modified independent level for return to his independent living facility. Cognitive impairment with history of TBI. Scored 19/30 on the [place] cognitive Assessment. Decreased memory and executive function. Also noted to be impulsive, perseverative and tangential. * No changes as of 09/14/2018. * Continue JOB PRINTER. Hypoxia. V/Q scan 09/08/2018 low probability for pulmonary embolus. Anemia may contribute. BNP 09/08/2018 not consistent with CHF. Encourage incentive spirometry. * Anemia improving on 09/13/2018. * Doppler ultrasound study of lower extremities, 09/13/2018, ruled out DVT. Right heel pain. Obtained x-ray of right calcaneus, 09/08/2018. Nondisplaced fracture was seen. Discussed with orthopedic surgeon Dr. Lema, 09/08/2018. No change in weight-bearing status. Right mid foot pain 09/14/2018. No fracture on x-ray. Pain management. He reports that hydromorphone has been the most effective medication. opiate from the acetaminophen. Scheduled acetaminophen 1000 mg q.8 hours; ordered hydromorphone 2 to 4 mg q.4 hours p.r.n. He should be offered hydromorphone prior to therapy sessions so that he can have adequate pain control to participate in therapy. * Using 2 doses per day of 2 mg for the past 4 days as of 09/15/2018. Urinary frequency. Bladder scan approximately 200 cc after voiding approximately 200 cc, 09/08/2018. Initiated tamsulosin, 09/08/2018. He reports improvement in nocturia on discussion, 09/12/2018. * Most recent bladder scan postvoid residual on 09/11/2018 was 62 cc. * Increase tamsulosin to 0.8 mg q.day starting 09/15/2018. Continue to monitor. Depression versus adjustment disorder with depressed mood. Initiate citalopram 10 mg q.day starting 09/13/2018. Continue to monitor. * Consider short-term use of stimulants such as methylphenidate for more rapid onset. Diabetes mellitus, type 2. Continue current medications with glimepiride, metformin and pioglitazone. Continue insulin sliding scale with which he was treated in the hospital. Osteoporosis. It might be in his best interest to discontinue pioglitazone and to initiate an alternate hyperglycemic such as a GLP-1 agonist. Continue cholecalciferol. He should consider initiating bisphosphonate therapy after his discharge. He should consider consultation with Endocrinology. Hypertension. Continue lisinopril and monitor blood pressures. Opiate-induced constipation. Continue bowel program with polyethylene glycol on a p.r.n. basis and scheduled senna/docusate. Continue bisacodyl suppository on an as-needed basis. Prophylaxis. High risk for DVT. Continue enoxaparin 40 mg q.day subcutaneous; may need to continue until weight-bearing is restored. Hold aspirin while on enoxaparin. DISPOSITION: Goal is to achieve independence with transfers and mobility. As of 09/15/2018, not accepted for return to [facility]. He may be able to arrange private pay COUNTER [employer]OLDER. Discharge date not determined at present. May need to discharge to [facility] facility. Followup: His primary care provider is Dr. Rajan Lopez, and he can see her in followup after his discharge. He is to follow up with orthopedic surgeon, Dr. Emi Kirk, on 09/15/2018 for postoperative visit. Instructions regarding wound care are to leave dressings in place until followup with orthopedics. Consider Endocrinology evaluation re osteoporosis and DM2. 09/15/18 14:32 Subjective: Continues to have nocturia. He says he urinated 4 times overnight last night, which interfered with sleep. Still has pain in the right leg. Is in poor spirits. [place] today that he cannot return to his assisted living at his current level of function, since he would need more care than they can provide. Otherwise without complaints. No cough or dyspnea. Objective: Vital Signs Temp Pulse Resp BP Pulse Ox 36.6 C 57 L 16 122/79 H 93 09/15/18 05:19 09/15/18 05:19 09/15/18 05:19 09/15/18 05:19 09/15/18 05:19 Laboratory Results 09/13/18 09:09 09/08/18 06:00 09/14/18 09/15/18 09/16/18 05:59 05:59 05:59 Intake Total 900 500 340 Output Total 4323 052 225 Balance -850 -175 115 Physical Exam - Physical Exam General Appearance: WD/WN, alert, no apparent distress, obese Respiratory: normal breath sounds, No crackles, No rhonchi, No wheezing Cardiac/Chest: regular rate, rhythm, No diastolic murmur, No systolic murmur Skin: normal color, warm/dry Neuro/Psych: alert, oriented x 3, depressed affect ICD10 Worksheet Patient Problems: Problems Problem Status Onset Fracture of fifth metatarsal bone of left foot Acute Right fibular fracture Acute Right tibial fracture Acute
[2018-09-15] MEDS: ATORVASTATIN CALCIUM 40 MG TAB PO SCH (20:53)
[2018-09-16] MEDS: ACETAMINOPHEN 500 MG TAB PO SCH ×3 (06:27→22:30)
[2018-09-16] MEDS: GLIMEPIRIDE 2 MG TAB PO SCH (08:11)
[2018-09-16] MEDS: PANTOPRAZOLE SODIUM 40 MG TAB PO SCH (08:13)
[2018-09-16] MEDS: MULTIVITAMINS 1 EACH TAB PO SCH (08:13)
[2018-09-16] MEDS: SENNOSIDES/DOCUSATE SODIUM TAB PO SCH ×2 (08:13→20:03)
[2018-09-16] MEDS: TAMSULOSIN HCL 0.4 MG CAP PO SCH (08:13)
[2018-09-16] MEDS: PIOGLITAZONE HCL 15 MG TAB PO SCH (08:13)
[2018-09-16] MEDS: CITALOPRAM 20 MG TAB PO SCH (08:13)
[2018-09-16] MEDS: CHOLECALCIFEROL VIT D3 1,000 UNITS TAB PO SCH (08:13)
[2018-09-16] MEDS: LISINOPRIL 5 MG TAB PO SCH (08:14)
[2018-09-16] MEDS: metFORMIN HCL 500 MG TAB PO SCH ×2 (08:14→20:03)
[2018-09-16] MEDS: CETIRIZINE 10 MG TAB PO SCH (08:14)
[2018-09-16] MEDS: INSULIN LISPRO 100 UNIT/ML SC SCH ×3 (08:30→17:20)
[2018-09-16] MEDS: ENOXAPARIN 40 MG/0.4 ML SYR SC SCH (09:08)
--- NOTE | 2018-09-16 11:40 | PDOREHIP ---
Admission [facility] - Admission - 3 Day Assessment Period Admission Date/Day 1: 09/07/18 Day 2: 09/08/18 Day 3: 09/09/18 - Active Diagnoses Comorbidities and Co-existing Conditions at Admission: 59959. DM (e.g. diabetic retinopathy, nephropathy, and neuropathy) - Skin Conditions Unhealed Pressure Ulcer (1 or more/Stage 1 or >)-Admission: 0. No # Stage 1 Pressure Ulcers-Admission: 0 # Stage 2 Pressure Ulcers-Admission: 0 # Stage 3 Pressure Ulcers-Admission: 0 # Stage 4 Pressure Ulcers-Admission: 0 # Unstageable Pressure Ulcers (Non-remove Dress)-Admission: 0 # Unstageable Pressure Ulcers (Slough/Eschar)-Admission: 0 # Unstageable Pressure Ulcers (Deep Tissue Injury)-Admission: 0 Discharge LOCATED WITHIN [facility] - Discharge - 3 Day Assessment Period 2 Days Prior to Anticipated Discharge Date: 09/14/18 1 Day Prior to Anticipated Discharge Date: 09/15/18 Anticipated Discharge Date: 09/16/18 - Discharge Skin Conditions Unhealed Pressure Ulcer (1 or more/Stage 1 or >)-Discharge: 0. No # Stage 1 Pressure Ulcers-Discharge: 0 # Stage 2 Pressure Ulcers-Discharge: 0 # of These Stage 2 Pressure Ulcers Present on Admission: 0 # Stage 3 Pressure Ulcers-Discharge: 0 # of These Stage 3 Pressure Ulcers Present on Admission: 0 # Stage 4 Pressure Ulcers-Discharge: 0 # of These Stage 4 Pressure Ulcers Present on Admission: 0 # Unstageable Pressure Ulcers (Non-remove Dress)-Discharge: 0 # These Unstageable Pressure Ulcers (NRD)-Present on Admit: 0 # Unstageable Pressure Ulcers (Slough/Eschar)-Discharge: 0 # These Unstageable Pressure Ulcers(Slough) Present on Admit: 0 # Unstageable Pressure Ulcers (Deep Tissue Injury)-Discharge: 0 # These Unstageable Pressure Ulcers (DTI) Present on Admit: 0
[2018-09-16] MEDS: HYDROmorphONE/DILAUDID 2 MG TAB PO PRN (12:09)
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
[2018-09-16] MEDS: ATORVASTATIN CALCIUM 40 MG TAB PO SCH (20:03)
[2018-09-17] MEDS: ENOXAPARIN 40 MG/0.4 ML SYR SC SCH (08:37)
[2018-09-17] MEDS: MULTIVITAMINS 1 EACH TAB PO SCH (08:38)
[2018-09-17] MEDS: CHOLECALCIFEROL VIT D3 1,000 UNITS TAB PO SCH (08:38)
[2018-09-17] MEDS: PIOGLITAZONE HCL 15 MG TAB PO SCH (08:38)
[2018-09-17] MEDS: CETIRIZINE 10 MG TAB PO SCH (08:38)
[2018-09-17] MEDS: GLIMEPIRIDE 2 MG TAB PO SCH (08:38)
[2018-09-17] MEDS: PANTOPRAZOLE SODIUM 40 MG TAB PO SCH (08:39)
[2018-09-17] MEDS: LISINOPRIL 5 MG TAB PO SCH (08:39)
[2018-09-17] MEDS: metFORMIN HCL 500 MG TAB PO SCH ×2 (08:39→20:19)
[2018-09-17] MEDS: ACETAMINOPHEN 500 MG TAB PO SCH ×3 (08:40→20:19)
[2018-09-17] MEDS: SENNOSIDES/DOCUSATE SODIUM TAB PO SCH ×2 (08:41→20:19)
[2018-09-17] MEDS: CITALOPRAM 20 MG TAB PO SCH (08:41)
[2018-09-17] MEDS: INSULIN LISPRO 100 UNIT/ML SC SCH ×3 (08:53→18:51)
--- NOTE | 2018-09-17 11:52 | HOSPPROG ---
Hospitalist Progress Note Objective: Vital Signs Temp Pulse Resp BP Pulse Ox 37.1 C 62 16 109/85 H 93 09/17/18 05:32 09/17/18 05:32 09/17/18 05:32 09/17/18 05:32 09/17/18 05:32 Laboratory Results 09/13/18 09:09 09/08/18 06:00 09/16/18 09/17/18 09/18/18 05:59 05:59 05:59 Intake Total 890 2200 Output Total 975 1650 400 Balance -85 550 -400 ICD10 Worksheet Patient Problems: Problems Problem Status Onset Fracture of fifth metatarsal bone of left foot Acute Right fibular fracture Acute Right tibial fracture Acute
[2018-09-17] MEDS: TAMSULOSIN HCL 0.4 MG CAP PO SCH (13:19)
--- NOTE | 2018-09-17 20:04 | HOSPPROG ---
Hospitalist Progress Note Assessment/Plan: Debility with partial weightbearing on the left lower extremity complicated by obesity. * Initial functional independence measure is 55 on 09/09/2018, inroved to 62 on . CGA to min assist for sliding board transfers. CGA for bed mobility. Grooming and hygiene were done seated with modified independence. Upper body dressing required SBA, lower body dressing with mod A. 2 person transfer to shower chair. Moderate assist for bathing. * Advanced to slide board transfers and no longer using Cindi steady as of 2018. * Continue PT and OT to optimize mobility and activities of daily living to the modified independent level for return to his independent living facility. Cognitive impairment with history of TBI. Scored 19/30 on the [place] cognitive Assessment. Decreased memory and executive function. Also noted to be impulsive, perseverative and tangential. * No changes as of 09/14/2018. 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 Hypoxia. V/Q scan 09/08/2018 low probability for pulmonary embolus. Anemia may contribute. BNP 09/08/2018 not consistent with CHF. Encourage incentive spirometry. * Anemia improving on 09/13/2018. * Doppler ultrasound study of lower extremities, 09/13/2018, ruled out DVT. Right heel pain. Obtained x-ray of right calcaneus, 09/08/2018. Nondisplaced fracture was seen. Discussed with orthopedic surgeon Dr. Lema, 09/08/2018. No change in weight-bearing status. Right mid foot pain 09/14/2018. No fracture on x-ray. Pain management. He reports that hydromorphone has been the most effective medication. opiate from the acetaminophen. Scheduled acetaminophen 1000 mg q.8 hours; ordered hydromorphone 2 to 4 mg q.4 hours p.r.n. He should be offered hydromorphone prior to therapy sessions so that he can have adequate pain control to participate in therapy. * Using 2 doses per day of 2 mg for the past 4 days as of 09/15/2018. Urinary frequency. Bladder scan approximately 200 cc after voiding approximately 200 cc, 09/08/2018. Initiated tamsulosin, 09/08/2018. He reports improvement in nocturia on discussion, 09/12/2018. * Most recent bladder scan postvoid residual on 09/11/2018 was 62 cc. * Increase tamsulosin to 0.8 mg q.day starting 09/15/2018. Continue to monitor. Depression versus adjustment disorder with depressed mood. Initiate citalopram 10 mg q.day starting 09/13/2018. Continue to monitor. * Consider short-term use of stimulants such as methylphenidate for more rapid onset. Diabetes mellitus, type 2. Continue current medications with glimepiride, metformin and pioglitazone. Continue insulin sliding scale with which he was treated in the hospital. Osteoporosis. It might be in his best interest to discontinue pioglitazone and to initiate an alternate hyperglycemic such as a GLP-1 agonist. Continue cholecalciferol. He should consider initiating bisphosphonate therapy after his discharge. He should consider consultation with Endocrinology. Hypertension. Continue lisinopril and monitor blood pressures. Opiate-induced constipation. Continue bowel program with polyethylene glycol on a p.r.n. basis and scheduled senna/docusate. Continue bisacodyl suppository on an as-needed basis. Prophylaxis. High risk for DVT. Continue enoxaparin 40 mg q.day subcutaneous; may need to continue until weight-bearing is restored. Hold aspirin while on enoxaparin. DISPOSITION: was going to SNF but postponed Subjective: no new complaints Objective: Vital Signs Temp Pulse Resp BP Pulse Ox 37.1 C 62 16 90/45 L 93 09/17/18 18:54 09/17/18 18:54 09/17/18 18:54 09/17/18 18:54 09/17/18 18:54 Laboratory Results 09/13/18 09:09 09/08/18 06:00 09/16/18 09/17/18 09/18/18 05:59 05:59 05:59 Intake Total 890 2200 1020 Output Total 975 1650 500 Balance -85 550 520 - Physical Exam Constitutional: no apparent distress, appears nourished, not in pain Eyes: anicteric sclera Respiratory: no respiratory distress Skin: warm Neurologic: AAOx3 Psychiatric: interacting appropriately, not anxious, not encephalopathic, thought process linear ICD10 Worksheet Patient Problems: Problems Problem Status Onset Fracture of fifth metatarsal bone of left foot Acute Right fibular fracture Acute Right tibial fracture Acute
[2018-09-17] MEDS: HYDROmorphONE/DILAUDID 2 MG TAB PO PRN (20:19)
[2018-09-17] MEDS: ATORVASTATIN CALCIUM 40 MG TAB PO SCH (20:19)
[2018-09-18] MEDS: ACETAMINOPHEN 500 MG TAB PO SCH ×3 (04:13→20:01)
[2018-09-18] MEDS: HYDROmorphONE/DILAUDID 2 MG TAB PO PRN ×3 (04:13→15:33)
[2018-09-18] MEDS: metFORMIN HCL 500 MG TAB PO SCH ×2 (08:24→20:01)
[2018-09-18] MEDS: PIOGLITAZONE HCL 15 MG TAB PO SCH (08:25)
[2018-09-18] MEDS: GLIMEPIRIDE 2 MG TAB PO SCH (08:25)
[2018-09-18] MEDS: MULTIVITAMINS 1 EACH TAB PO SCH (08:27)
[2018-09-18] MEDS: CETIRIZINE 10 MG TAB PO SCH (08:27)
[2018-09-18] MEDS: CITALOPRAM 20 MG TAB PO SCH (08:27)
[2018-09-18] MEDS: PANTOPRAZOLE SODIUM 40 MG TAB PO SCH (08:27)
[2018-09-18] MEDS: LISINOPRIL 5 MG TAB PO SCH (08:30)
[2018-09-18] MEDS: TAMSULOSIN HCL 0.4 MG CAP PO SCH (08:30)
[2018-09-18] MEDS: INSULIN LISPRO 100 UNIT/ML SC SCH ×3 (08:31→17:09)
[2018-09-18] MEDS: ENOXAPARIN 40 MG/0.4 ML SYR SC SCH (08:31)
[2018-09-18] MEDS: CHOLECALCIFEROL VIT D3 1,000 UNITS TAB PO SCH (08:31)
[2018-09-18] MEDS: SENNOSIDES/DOCUSATE SODIUM TAB PO SCH ×2 (08:32→20:02)
--- NOTE | 2018-09-18 12:18 | HOSPPROG ---
Hospitalist Progress Note Assessment/Plan: Debility with partial weightbearing on the left lower extremity complicated by obesity. * Initial functional independence measure is 55 on 09/09/2018, inroved to 62 on . CGA to min assist for sliding board transfers. CGA for bed mobility. Grooming and hygiene were done seated with modified independence. Upper body dressing required SBA, lower body dressing with mod A. 2 person transfer to shower chair. Moderate assist for bathing. * Advanced to slide board transfers and no longer using Cindi steady as of 2018. * Continue PT and OT to optimize mobility and activities of daily living to the modified independent level for return to his independent living facility. Cognitive impairment with history of TBI. Scored 19/30 on the Aleksandr cognitive Assessment. Decreased memory and executive function. Also noted to be impulsive, perseverative and tangential. * No changes as of 09/14/2018. 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 Hypoxia. V/Q scan 09/08/2018 low probability for pulmonary embolus. Anemia may contribute. BNP 09/08/2018 not consistent with CHF. Encourage incentive spirometry. * Anemia improving on 09/13/2018. * Doppler ultrasound study of lower extremities, 09/13/2018, ruled out DVT. Right heel pain. Obtained x-ray of right calcaneus, 09/08/2018. Nondisplaced fracture was seen. Discussed with orthopedic surgeon Dr. Lema, 09/08/2018. No change in weight-bearing status. Right mid foot pain 09/14/2018. No fracture on x-ray. Pain management. He reports that hydromorphone has been the most effective medication. opiate from the acetaminophen. Scheduled acetaminophen 1000 mg q.8 hours; ordered hydromorphone 2 to 4 mg q.4 hours p.r.n. He should be offered hydromorphone prior to therapy sessions so that he can have adequate pain control to participate in therapy. * Using 2 doses per day of 2 mg for the past 4 days as of 09/15/2018. Urinary frequency. Bladder scan approximately 200 cc after voiding approximately 200 cc, 09/08/2018. Initiated tamsulosin, 09/08/2018. He reports improvement in nocturia on discussion, 09/12/2018. * Most recent bladder scan postvoid residual on 09/11/2018 was 62 cc. * Increase tamsulosin to 0.8 mg q.day starting 09/15/2018. Continue to monitor. Depression versus adjustment disorder with depressed mood. Initiate citalopram 10 mg q.day starting 09/13/2018. Continue to monitor. * Consider short-term use of stimulants such as methylphenidate for more rapid onset. Diabetes mellitus, type 2. Continue current medications with glimepiride, metformin and pioglitazone. Continue insulin sliding scale with which he was treated in the hospital. Osteoporosis. It might be in his best interest to discontinue pioglitazone and to initiate an alternate hyperglycemic such as a GLP-1 agonist. Continue cholecalciferol. He should consider initiating bisphosphonate therapy after his discharge. He should consider consultation with Endocrinology. Hypertension. Continue lisinopril and monitor blood pressures. Opiate-induced constipation. Continue bowel program with polyethylene glycol on a p.r.n. basis and scheduled senna/docusate. Continue bisacodyl suppository on an as-needed basis. Prophylaxis. High risk for DVT. Continue enoxaparin 40 mg q.day subcutaneous; may need to continue until weight-bearing is restored. Hold aspirin while on enoxaparin. DISPOSITION: was going to SNF but postponed. [facility] Subjective: fustrated with dispo challenges. no new physical complaints Objective: Vital Signs Temp Pulse Resp BP Pulse Ox 36.7 C 58 L 20 109/79 92 09/18/18 08:00 09/18/18 08:00 09/18/18 08:00 09/18/18 08:30 09/18/18 08:00 Laboratory Results 09/13/18 09:09 09/08/18 06:00 09/17/18 09/18/18 09/19/18 05:59 05:59 05:59 Intake Total 2200 1420 Output Total 1650 700 Balance 550 720 - Physical Exam Constitutional: no apparent distress, appears nourished, not in pain Eyes: anicteric sclera, EOMI Ears, Nose, Mouth, Throat: moist mucous membranes Respiratory: no respiratory distress Neurologic: AAOx3 Psychiatric: interacting appropriately, not anxious, not encephalopathic, thought process linear ICD10 Worksheet Patient Problems: Problems Problem Status Onset Fracture of fifth metatarsal bone of left foot Acute Right fibular fracture Acute Right tibial fracture Acute
[2018-09-18] MEDS: ATORVASTATIN CALCIUM 40 MG TAB PO SCH (20:01)
[2018-09-19] MEDS: HYDROmorphONE/DILAUDID 2 MG TAB PO PRN (03:55)
[2018-09-19] MEDS: INSULIN LISPRO 100 UNIT/ML SC SCH ×3 (08:19→17:06)
[2018-09-19] MEDS: CETIRIZINE 10 MG TAB PO SCH (08:22)
[2018-09-19] MEDS: CHOLECALCIFEROL VIT D3 1,000 UNITS TAB PO SCH (08:22)
[2018-09-19] MEDS: CITALOPRAM 20 MG TAB PO SCH (08:23)
[2018-09-19] MEDS: GLIMEPIRIDE 2 MG TAB PO SCH (08:23)
[2018-09-19] MEDS: LISINOPRIL 5 MG TAB PO SCH (08:23)
[2018-09-19] MEDS: PANTOPRAZOLE SODIUM 40 MG TAB PO SCH (08:25)
[2018-09-19] MEDS: MULTIVITAMINS 1 EACH TAB PO SCH (08:25)
[2018-09-19] MEDS: PIOGLITAZONE HCL 15 MG TAB PO SCH (08:25)
[2018-09-19] MEDS: metFORMIN HCL 500 MG TAB PO SCH ×2 (08:26→21:43)
[2018-09-19] MEDS: SENNOSIDES/DOCUSATE SODIUM TAB PO SCH ×2 (08:27→21:43)
[2018-09-19] MEDS: TAMSULOSIN HCL 0.4 MG CAP PO SCH (08:27)
[2018-09-19] MEDS: ENOXAPARIN 40 MG/0.4 ML SYR SC SCH (09:00)
[2018-09-19] MEDS: ACETAMINOPHEN 500 MG TAB PO SCH ×3 (10:42→21:44)
--- NOTE | 2018-09-19 11:37 | SOAPPROG ---
SOAP Progress Note Assessment/Plan: Assessment: Debility with partial weightbearing on the left lower extremity complicated by obesity. * Initial functional independence measure is 55 on 09/09/2018, inroved to 62 on . CGA to min assist for sliding board transfers. CGA for bed mobility. Grooming and hygiene were done seated with modified independence. Upper body dressing required SBA, lower body dressing with mod A. 2 person transfer to shower chair. Moderate assist for bathing. * Advanced to slide board transfers and no longer using Cindi steady as of 2018. * Continue PT and OT to optimize mobility and activities of daily living to the modified independent level for return to his independent living facility. Cognitive impairment with history of TBI. Scored 19/30 on the [place] cognitive Assessment. Decreased memory and executive function. Also noted to be impulsive, perseverative and tangential. * No changes as of 09/14/2018. 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 Hypoxia. V/Q scan 09/08/2018 low probability for pulmonary embolus. Anemia may contribute. BNP 09/08/2018 not consistent with CHF. Encourage incentive spirometry. * Anemia improving on 09/13/2018. * Doppler ultrasound study of lower extremities, 09/13/2018, ruled out DVT. Right heel pain. Obtained x-ray of right calcaneus, 09/08/2018. Nondisplaced fracture was seen. Discussed with orthopedic surgeon Dr. Lema, 09/08/2018. No change in weight-bearing status. Right mid foot pain 09/14/2018. No fracture on x-ray. Pain management. He reports that hydromorphone has been the most effective medication. opiate from the acetaminophen. Scheduled acetaminophen 1000 mg q.8 hours; ordered hydromorphone 2 to 4 mg q.4 hours p.r.n. He should be offered hydromorphone prior to therapy sessions so that he can have adequate pain control to participate in therapy. * Using 1 - 3 doses per day of 2 mg each. Urinary frequency. Bladder scan approximately 200 cc after voiding approximately 200 cc, 09/08/2018. Initiated tamsulosin, 09/08/2018. He reports improvement in nocturia on discussion, 09/12/2018. * Most recent bladder scan postvoid residual on 09/11/2018 was 62 cc. * Increase tamsulosin to 0.8 mg q.day starting 09/15/2018. Continue to monitor. Depression versus adjustment disorder with depressed mood. Initiate citalopram 10 mg q.day starting 09/13/2018. Increased dose to 20 mg per day on 09/16/2018. Continue to monitor. Diabetes mellitus, type 2. Continue current medications with glimepiride, metformin and pioglitazone. Continue insulin sliding scale with which he was treated in the hospital. * Blood sugars are running lower than target as of 09/19/2018. Will reduce pioglitazone from 45 mg to 30 mg q.day starting 09/20/2018. Osteoporosis. It might be in his best interest to discontinue pioglitazone and to initiate an alternate hyperglycemic such as a GLP-1 agonist. Continue cholecalciferol. He should consider initiating bisphosphonate therapy after his discharge. He should consider consultation with Endocrinology. Hypertension. Continue lisinopril and monitor blood pressures. Opiate-induced constipation. Continue bowel program with polyethylene glycol on a p.r.n. basis and scheduled senna/docusate. Continue bisacodyl suppository on an as-needed basis. Prophylaxis. High risk for DVT. Continue enoxaparin 40 mg q.day subcutaneous; may need to continue until weight-bearing is restored. Hold aspirin while on enoxaparin. DISPOSITION: Goal is to achieve independence with transfers and mobility. As of 09/15/2018, not accepted for return to [facility] where he previously resided. Current plan is for him to discharge to [facility] on 09/21/2018. Followup: His primary care provider is Dr. Rajan Lopez, and he can see her in followup after his discharge. He is to follow up with orthopedic surgeon, Dr. Emi Kirk, on 09/29/2018 for postoperative visit. Consider Endocrinology evaluation re osteoporosis and DM2. 09/19/18 11:38 Subjective: No complaints. Not in pain. No cough or dyspnea, no fevers or chills. Objective: Vital Signs Temp Pulse Resp BP Pulse Ox 36.8 C 62 16 107/67 90 L 09/18/18 19:21 09/19/18 08:00 09/18/18 19:21 09/19/18 08:00 09/19/18 08:00 Laboratory Results 09/13/18 09:09 09/08/18 06:00 09/18/18 09/19/1819 05:59 05:59 05:59 Intake Total 1420 1340 300 Output Total 700 900 200 Balance 720 440 100 Physical Exam - Physical Exam General Appearance: WD/WN, alert, no apparent distress, obese Respiratory: normal breath sounds, No crackles, No rhonchi, No wheezing Cardiac/Chest: regular rate, rhythm, edema (1+ B pretibial), systolic murmur Skin: normal color, warm/dry Neuro/Psych: no motor/sensory deficits, alert, normal mood/affect, oriented x 3 ICD10 Worksheet Patient Problems: Problems Problem Status Onset Fracture of fifth metatarsal bone of left foot Acute Right fibular fracture Acute Right tibial fracture Acute
[2018-09-19] MEDS: BISACODYL 10 MG SUPP PR PRN (15:36)
[2018-09-19] MEDS: ATORVASTATIN CALCIUM 40 MG TAB PO SCH (21:43)
[2018-09-20] MEDS: ACETAMINOPHEN 500 MG TAB PO SCH ×3 (07:59→20:36)
[2018-09-20] MEDS: CHOLECALCIFEROL VIT D3 1,000 UNITS TAB PO SCH (07:59)
[2018-09-20] MEDS: metFORMIN HCL 500 MG TAB PO SCH ×2 (08:00→20:36)
[2018-09-20] MEDS: CITALOPRAM 20 MG TAB PO SCH (08:00)
[2018-09-20] MEDS: GLIMEPIRIDE 2 MG TAB PO SCH (08:00)
[2018-09-20] MEDS: TAMSULOSIN HCL 0.4 MG CAP PO SCH (08:00)
[2018-09-20] MEDS: MULTIVITAMINS 1 EACH TAB PO SCH (08:00)
[2018-09-20] MEDS: SENNOSIDES/DOCUSATE SODIUM TAB PO SCH ×2 (08:00→20:36)
[2018-09-20] MEDS: PANTOPRAZOLE SODIUM 40 MG TAB PO SCH (08:01)
[2018-09-20] MEDS: ENOXAPARIN 40 MG/0.4 ML SYR SC SCH (08:01)
[2018-09-20] MEDS: CETIRIZINE 10 MG TAB PO SCH (08:01)
[2018-09-20] MEDS: LISINOPRIL 5 MG TAB PO SCH (08:02)
[2018-09-20] MEDS: INSULIN LISPRO 100 UNIT/ML SC SCH ×3 (08:03→17:04)
[2018-09-20] MEDS ORDERED: PIOGLITAZONE HCL 15 MG TAB PO SCH (09:00)
--- NOTE | 2018-09-20 14:41 | SOAPPROG ---
SOAP Progress Note Assessment/Plan: Assessment: Debility with partial weightbearing on the left lower extremity complicated by obesity. * Initial functional independence measure is 55 on 09/09/2018, inroved to 62 on . CGA to min assist for sliding board transfers. CGA for bed mobility. Grooming and hygiene were done seated with modified independence. Upper body dressing required SBA, lower body dressing with mod A. 2 person transfer to shower chair. Moderate assist for bathing. * Advanced to slide board transfers and no longer using Cindi steady as of 2018. SBA with slidinig board as of 09/19/2018. * Continue PT and OT to optimize mobility and activities of daily living to the modified independent level for return to his independent living facility. Cognitive impairment with history of TBI. Scored 19/30 on the [place] cognitive Assessment. Decreased memory and executive function. Also noted to be impulsive, perseverative and tangential. * No changes as of 09/14/2018. 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 Hypoxia. V/Q scan 09/08/2018 low probability for pulmonary embolus. Anemia may contribute. BNP 09/08/2018 not consistent with CHF. Encourage incentive spirometry. * Anemia improving on 09/13/2018. * Doppler ultrasound study of lower extremities, 09/13/2018, ruled out DVT. Right heel pain. Obtained x-ray of right calcaneus, 09/08/2018. Nondisplaced fracture was seen. Discussed with orthopedic surgeon Dr. Lema, 09/08/2018. No change in weight-bearing status. Right mid foot pain 09/14/2018. No fracture on x-ray. Pain management. He reports that hydromorphone has been the most effective medication. opiate from the acetaminophen. Scheduled acetaminophen 1000 mg q.8 hours; ordered hydromorphone 2 to 4 mg q.4 hours p.r.n. He should be offered hydromorphone prior to therapy sessions so that he can have adequate pain control to participate in therapy. * Was using 1 - 3 doses per day of 2 mg each. * Not used since 09/19/2018. Urinary frequency. Bladder scan approximately 200 cc after voiding approximately 200 cc, 09/08/2018. Initiated tamsulosin, 09/08/2018. He reports improvement in nocturia on discussion, 09/12/2018. * Most recent bladder scan postvoid residual on 09/11/2018 was 62 cc. * Increase tamsulosin to 0.8 mg q.day starting 09/15/2018. Continue to monitor. Depression versus adjustment disorder with depressed mood. Initiate citalopram 10 mg q.day starting 09/13/2018. Increased dose to 20 mg per day on 09/16/2018. Continue to monitor. Diabetes mellitus, type 2. Continue current medications with glimepiride, metformin and pioglitazone. Continue insulin sliding scale with which he was treated in the hospital. * Blood sugars are running lower than target as of 09/19/2018. Will reduce pioglitazone from 45 mg to 30 mg q.day starting 09/20/2018. Osteoporosis. It might be in his best interest to discontinue pioglitazone and to initiate an alternate hyperglycemic such as a GLP-1 agonist. Continue cholecalciferol. He should consider initiating bisphosphonate therapy after his discharge. He should consider consultation with Endocrinology. Hypertension. Continue lisinopril and monitor blood pressures. Opiate-induced constipation. Continue bowel program with polyethylene glycol on a p.r.n. basis and scheduled senna/docusate. Continue bisacodyl suppository on an as-needed basis. Prophylaxis. High risk for DVT. Continue enoxaparin 40 mg q.day subcutaneous; may need to continue until weight-bearing is restored. Hold aspirin while on enoxaparin. DISPOSITION: Goal is to achieve independence with transfers and mobility. As of 09/15/2018, not accepted for return to [facility] where he previously resided. Current plan is for him to discharge to [facility] on 09/21/2018. Followup: His primary care provider is Dr. Rajan Lopez, and he can see her in followup after his discharge. He is to follow up with orthopedic surgeon, Dr. Emi Kirk, on 09/29/2018 for postoperative visit. Consider Endocrinology evaluation re osteoporosis and DM2. 09/20/18 14:37 Subjective: Feeling "so-so." Does not believe that he will be able to resume the level of activity that he had prior to his fractures. Otherwise without complaint. No cough or dyspnea, no fevers or chills. Not in pain. Objective: Vital Signs Temp Pulse Resp BP Pulse Ox 36.8 C 52 L 17 112/50 L 93 09/19/18 19:00 09/20/18 05:44 09/20/18 05:44 09/20/18 08:02 09/20/18 05:44 Laboratory Results 09/13/18 09:09 09/08/18 06:00 09/19/18 09/20/18 09/21/18 05:59 05:59 05:59 Intake Total 1340 1390 340 Output Total 900 950 250 Balance 440 440 90 Physical Exam - Physical Exam General Appearance: WD/WN, alert, no apparent distress, obese Respiratory: normal breath sounds, No crackles, No rhonchi, No wheezing Cardiac/Chest: regular rate, rhythm, other (Rare extra systole), No edema, No diastolic murmur, No systolic murmur Skin: normal color, warm/dry Neuro/Psych: alert, normal mood/affect, oriented x 3 ICD10 Worksheet Patient Problems: Problems Problem Status Onset Fracture of fifth metatarsal bone of left foot Acute Right fibular fracture Acute Right tibial fracture Acute
--- NOTE | 2018-09-20 17:34 | PDOREHIP ---
Admission [facility] - Admission - 3 Day Assessment Period Admission Date/Day 1: 09/07/18 Day 2: 09/08/18 Day 3: 09/09/18 - Active Diagnoses Comorbidities and Co-existing Conditions at Admission: 09575. DM (e.g. diabetic retinopathy, nephropathy, and neuropathy) - Skin Conditions Unhealed Pressure Ulcer (1 or more/Stage 1 or >)-Admission: 0. No # Stage 1 Pressure Ulcers-Admission: 0 # Stage 2 Pressure Ulcers-Admission: 0 # Stage 3 Pressure Ulcers-Admission: 0 # Stage 4 Pressure Ulcers-Admission: 0 # Unstageable Pressure Ulcers (Non-remove Dress)-Admission: 0 # Unstageable Pressure Ulcers (Slough/Eschar)-Admission: 0 # Unstageable Pressure Ulcers (Deep Tissue Injury)-Admission: 0 Discharge [facility] - Discharge - 3 Day Assessment Period 2 Days Prior to Anticipated Discharge Date: 09/19/18 1 Day Prior to Anticipated Discharge Date: 09/20/18 Anticipated Discharge Date: 09/21/18 - Discharge Skin Conditions Unhealed Pressure Ulcer (1 or more/Stage 1 or >)-Discharge: 0. No # Stage 1 Pressure Ulcers-Discharge: 0 # Stage 2 Pressure Ulcers-Discharge: 0 # of These Stage 2 Pressure Ulcers Present on Admission: 0 # Stage 3 Pressure Ulcers-Discharge: 0 # of These Stage 3 Pressure Ulcers Present on Admission: 0 # Stage 4 Pressure Ulcers-Discharge: 0 # of These Stage 4 Pressure Ulcers Present on Admission: 0 # Unstageable Pressure Ulcers (Non-remove Dress)-Discharge: 0 # These Unstageable Pressure Ulcers (NRD)-Present on Admit: 0 # Unstageable Pressure Ulcers (Slough/Eschar)-Discharge: 0 # These Unstageable Pressure Ulcers(Slough) Present on Admit: 0 # Unstageable Pressure Ulcers (Deep Tissue Injury)-Discharge: 0 # These Unstageable Pressure Ulcers (DTI) Present on Admit: 0
[2018-09-20] MEDS: ATORVASTATIN CALCIUM 40 MG TAB PO SCH (20:36)
[2018-09-21] MEDS: ACETAMINOPHEN 500 MG TAB PO SCH ×2 (05:32→14:07)
[2018-09-21 05:57] VITALS: BP 124/48
[2018-09-21] MEDS: INSULIN LISPRO 100 UNIT/ML SC SCH ×3 (07:50→16:50)
[2018-09-21] MEDS: SENNOSIDES/DOCUSATE SODIUM TAB PO SCH ×2 (08:17→18:26)
[2018-09-21] MEDS: PANTOPRAZOLE SODIUM 40 MG TAB PO SCH (08:17)
[2018-09-21] MEDS: MULTIVITAMINS 1 EACH TAB PO SCH (08:17)
[2018-09-21] MEDS: CHOLECALCIFEROL VIT D3 1,000 UNITS TAB PO SCH (08:17)
[2018-09-21] MEDS: GLIMEPIRIDE 2 MG TAB PO SCH (08:18)
[2018-09-21] MEDS: CETIRIZINE 10 MG TAB PO SCH (08:18)
[2018-09-21] MEDS: CITALOPRAM 20 MG TAB PO SCH (08:18)
[2018-09-21] MEDS: ENOXAPARIN 40 MG/0.4 ML SYR SC SCH (08:18)
[2018-09-21] MEDS: metFORMIN HCL 500 MG TAB PO SCH ×2 (08:18→18:27)
[2018-09-21] MEDS: TAMSULOSIN HCL 0.4 MG CAP PO SCH (08:18)
[2018-09-21] MEDS: LISINOPRIL 5 MG TAB PO SCH (08:19)
--- NOTE | 2018-09-21 09:48 | PDOREHIP ---
Admission [facility] - Admission - 3 Day Assessment Period Admission Date/Day 1: 09/07/18 Day 2: 09/08/18 Day 3: 09/09/18 - Active Diagnoses Comorbidities and Co-existing Conditions at Admission: 60320. DM (e.g. diabetic retinopathy, nephropathy, and neuropathy) - Skin Conditions Unhealed Pressure Ulcer (1 or more/Stage 1 or >)-Admission: 0. No # Stage 1 Pressure Ulcers-Admission: 0 # Stage 2 Pressure Ulcers-Admission: 0 # Stage 3 Pressure Ulcers-Admission: 0 # Stage 4 Pressure Ulcers-Admission: 0 # Unstageable Pressure Ulcers (Non-remove Dress)-Admission: 0 # Unstageable Pressure Ulcers (Slough/Eschar)-Admission: 0 # Unstageable Pressure Ulcers (Deep Tissue Injury)-Admission: 0 Discharge [facility] - Discharge - 3 Day Assessment Period 2 Days Prior to Anticipated Discharge Date: 09/19/18 1 Day Prior to Anticipated Discharge Date: 09/20/18 Anticipated Discharge Date: 09/21/18 - Discharge Skin Conditions Unhealed Pressure Ulcer (1 or more/Stage 1 or >)-Discharge: 0. No # Stage 1 Pressure Ulcers-Discharge: 0 # Stage 2 Pressure Ulcers-Discharge: 0 # of These Stage 2 Pressure Ulcers Present on Admission: 0 # Stage 3 Pressure Ulcers-Discharge: 0 # of These Stage 3 Pressure Ulcers Present on Admission: 0 # Stage 4 Pressure Ulcers-Discharge: 0 # of These Stage 4 Pressure Ulcers Present on Admission: 0 # Unstageable Pressure Ulcers (Non-remove Dress)-Discharge: 0 # These Unstageable Pressure Ulcers (NRD)-Present on Admit: 0 # Unstageable Pressure Ulcers (Slough/Eschar)-Discharge: 0 # These Unstageable Pressure Ulcers(Slough) Present on Admit: 0 # Unstageable Pressure Ulcers (Deep Tissue Injury)-Discharge: 0 # These Unstageable Pressure Ulcers (DTI) Present on Admit: 0
[2018-09-21] MEDS: ATORVASTATIN CALCIUM 40 MG TAB PO SCH (18:27)
== END 2018-09-21 18:37 | DRG 561 ==
LOC: BREH 13:38
PROVIDERS: ADMIT Internal Medicine Hospice and Palliative Medicine; ATTEND Internal Medicine Hospice and Palliative Medicine
PROC: F07M3ZZ Motor Function Treatment of Musculoskeletal System - Whole Body (ICD-10-PCS; principal; 2018-09-07)
PROC: F0636ZZ Communicative/Cognitive Integration Skills Treatment of Neurological System - Whole Body (ICD-10-PCS; principal; 2018-09-07)
PROC: F08Z7ZZ Vocational Activities and Functional Community or Work Reintegration Skills Treatment (ICD-10-PCS; principal; 2018-09-07)
DX: S82.401D Unspecified fracture of shaft of right fibula, subsequent encounter for closed fracture with routine healing (principal); S82.201D Unspecified fracture of shaft of right tibia, subsequent encounter for closed fracture with routine healing; S92.352D Displaced fracture of fifth metatarsal bone, left foot, subsequent encounter for fracture with routine healing; S92.001D Unspecified fracture of right calcaneus, subsequent encounter for fracture with routine healing; V00.81 Accident with wheelchair (powered); I51.7 Cardiomegaly; E11.9 Type 2 diabetes mellitus without complications; R35.0 Frequency of micturition; K59.03 Drug induced constipation; G31.84 Mild cognitive impairment of uncertain or unknown etiology; Z87.820 Personal history of traumatic brain injury; R09.02 Hypoxemia; M81.0 Age-related osteoporosis without current pathological fracture; J45.909 Unspecified asthma, uncomplicated; E66.9 Obesity, unspecified; I10 Essential (primary) hypertension; E78.5 Hyperlipidemia, unspecified; Z68.35 Body mass index [BMI] 35.0-35.9, adult; Z91.81 History of falling
CPT/HCPCS: 92507-GN; 92523-GN; 97110-GO; 97110-GP; 97162-GP; 97166-GO; 97530-GO; 97530-GP; 97535-GO; 97542-GP; A9540; A9558; G0515-GO; J1650; J1815